=== PATIENT | male | born 1955 | race Caucasian/White ===

== ENCOUNTER → 2017-03-21 14:49 | Outpatient (CLI) | payer OTHER, SELFPAY ==
--- NOTE | 2017-03-21 15:00 | XR_ITS ---
XR FACIAL BONES MIN 3V CLINICAL INDICATION: ITS.REASON: FACIAL PAIN ORDERING PHYSICIAN: Sahara Mendenhall PATIENT AGE: 61 years COMPARISON: None FINDINGS: No bony anomalies apparent. No sinus air-fluid level or significant mucosal thickening. No lytic or blastic change. The patient is edentulous aside from an impacted molar on the right in the mandibular region IMPRESSION: Negative facial bones/sinuses
== END ==
PROVIDERS: PCP Family Medicine; Visit Provider Nurse Practitioner Family
DX: R51 Headache (principal)
CPT/HCPCS: 70150

== ENCOUNTER → 2017-07-15 07:17 | Outpatient (CLI) | payer OTHER, SELFPAY ==
[2017-07-15 08:11] LABS: Alanine Aminotransferase 39 U/L (12-78); Albumin Level 3.9 gm/dL (3.4-5.0); Albumin/Globulin Ratio 1.3 (1.1-1.8); Alkaline Phosphatase 72 U/L (46-116); Anion Gap 14.3 mEq/L (5-15); Aspartate Amino Transferase 28 U/L (15-37); Bilirubin,Total 0.7 mg/dL (0.2-1.0); Blood Urea Nitrogen 11 mg/dL (7-18); Calcium 8.7 mg/dL (8.5-10.1); Carbon Dioxide 26 mmol/L (21.0-32.0); Chloride 106 mmol/L (98-107); Chol/HDL Ratio 2.4 (1-3.5); Cholesterol 90 mg/dL (140-200); Creatinine,Serum 0.72 mg/dL (0.70-1.30); Estimated Glomerular Filt Rate 110 ml/min (>60); GFR (African American) 133 ML/MIN (>60); Globulin 3.1 gm/dl (1.3-3.2); Glucose 118 mg/dL (74-106); HDL Cholesterol 37 mg/dL (27-67); LDL Cholesterol 37 mg/dL (0-130); Potassium 4.3 mmoL/L (3.5-5.1); Sodium 142 mmol/L (136-145); Triglycerides 79 mg/dL (30-200); VLDL Cholesterol 16 mg/dL (0-40)
== END ==
PROVIDERS: PCP Family Medicine; Visit Provider Physician Assistant
DX: I25.10 Atherosclerotic heart disease of native coronary artery without angina pectoris (principal); E78.5 Hyperlipidemia, unspecified
CPT/HCPCS: 36415; 80053; 80061

== ENCOUNTER → 2017-12-26 13:41 | Outpatient (CLI) | payer OTHER, SELFPAY ==
--- NOTE | 2017-12-26 13:43 | XR_ITS ---
XR foot wt bearing RT 3V HISTORY: Follow-up fracture ITS.REASON: fracture follow-up ORDERING PHYSICIAN: Thais Kelly DPM PATIENT AGE: 62 years COMPARISON: 11/28/2017. FINDINGS: Nondisplaced transverse fracture once again noted at the base of the fifth metatarsal. Fracture line is still visible slightly more apparent which may be due to hypervascularity from early healing. Otherwise negative IMPRESSION: Nondisplaced fracture base of fifth metatarsal
--- NOTE | 2017-12-26 13:43 | XR_ITS ---
XR ankle wt bearing RT min 3V HISTORY: Pain, follow-up injury ITS.REASON: fracture/dislocation follow-up ORDERING PHYSICIAN: Thais Kelly DPM PATIENT AGE: 62 years Comparison: 11/28/2017 FINDINGS: Old avulsion fractures of the medial and lateral malleolus once again noted. There is decrease in soft tissue swelling at the lateral malleolus region. Nondisplaced fracture at base of the fifth metatarsal once again noted. IMPRESSION: Interval decrease in soft tissue swelling at the lateral malleolus region. Nondisplaced fracture base of fifth metatarsal
== END ==
PROVIDERS: PCP Family Medicine; Visit Provider Podiatrist
DX: S92.354A Nondisplaced fracture of fifth metatarsal bone, right foot, initial encounter for closed fracture (principal); S93.491A Sprain of other ligament of right ankle, initial encounter; S82.891A Other fracture of right lower leg, initial encounter for closed fracture; T14.8XXA Other injury of unspecified body region, initial encounter; M25.571 Pain in right ankle and joints of right foot; E66.3 Overweight
CPT/HCPCS: 73610; 73630

== ENCOUNTER → 2018-01-22 15:57 | Outpatient (CLI) | payer OTHER, SELFPAY ==
--- NOTE | 2018-01-22 15:58 | XR_ITS ---
XR foot wt bearing RT 3V HISTORY: ITS.REASON: fracture follow up ORDERING PHYSICIAN: Thais Kelly DPM PATIENT AGE: 62 years COMPARISON: 12/26/2017 FINDINGS: Healing fracture noted at the base of the fifth metatarsal overall not significant changed. Fracture is nondisplaced. No other significant anomalies evident. Fracture line is still visible and not significant change. IMPRESSION: No change nondisplaced fracture base of fifth metatarsal
== END ==
PROVIDERS: PCP Family Medicine; Visit Provider Podiatrist
DX: S92.354A Nondisplaced fracture of fifth metatarsal bone, right foot, initial encounter for closed fracture (principal); S93.491A Sprain of other ligament of right ankle, initial encounter; M79.671 Pain in right foot; T14.8XXA Other injury of unspecified body region, initial encounter
CPT/HCPCS: 73630

== ENCOUNTER → 2018-02-13 12:21 | Outpatient (CLI) | payer OTHER, SELFPAY ==
[2018-02-13 19:08] LABS: Alanine Aminotransferase 33 U/L (12-78); Albumin Level 3.6 gm/dL (3.4-5.0); Albumin/Globulin Ratio 0.9 (1.1-1.8); Alkaline Phosphatase 63 U/L (46-116); Anion Gap 16.5 mEq/L (5-15); Aspartate Amino Transferase 18 U/L (15-37); Bilirubin,Total 0.7 mg/dL (0.2-1.0); Blood Urea Nitrogen 10 mg/dL (7-18); Calcium 9.3 mg/dL (8.5-10.1); Carbon Dioxide 25 mmol/L (21.0-32.0); Chloride 100 mmol/L (98-107); Chol/HDL Ratio 2.2 (1-3.5); Cholesterol 98 mg/dL (140-200); Creatinine,Serum 0.79 mg/dL (0.70-1.30); Estimated Glomerular Filt Rate 99 ml/min (>60); GFR (African American) 120 ML/MIN (>60); Globulin 4.1 gm/dl (1.3-3.2); Glucose 68 mg/dL (74-106); HDL Cholesterol 45 mg/dL (27-67); LDL Cholesterol 34 mg/dL (0-130); Potassium 3.5 mmoL/L (3.5-5.1); Sodium 138 mmol/L (136-145); Thyroid Stimulating Hormone 0.89 uIU/ml (0.358-3.740); Total Protein,Serum 7.7 gm/dL (6.4-8.2); Triglycerides 93 mg/dL (30-200); VLDL Cholesterol 19 mg/dL (0-40)
== END ==
PROVIDERS: Visit Provider Physician Assistant
DX: Z00.00 Encounter for general adult medical examination without abnormal findings (principal); I25.10 Atherosclerotic heart disease of native coronary artery without angina pectoris; E78.5 Hyperlipidemia, unspecified
CPT/HCPCS: 36415; 80053; 80061; 84443

== ENCOUNTER → 2018-02-16 08:11 | Outpatient (CLI) | payer OTHER, SELFPAY ==
--- NOTE | 2018-02-16 08:13 | XR_ITS ---
XR foot wt bearing RT 3V HISTORY: Follow-up fracture, pain, ITS.REASON: fracture follow up ORDERING PHYSICIAN: Thais Kelly DPM PATIENT AGE: 62 years COMPARISON: D5 18 FINDINGS: FINDINGS: Healing fracture noted at the base of the fifth metatarsal overall not significant changed. Fracture is nondisplaced. No other significant anomalies evident. Fracture line is still visible somewhat less apparent. Hallux valgus with mild osteoarthritis of the first MTP joint noted IMPRESSION: Healing fracture base of fifth metatarsal
== END ==
PROVIDERS: PCP Family Medicine; Visit Provider Podiatrist
DX: T14.8XXA Other injury of unspecified body region, initial encounter (principal); S92.309A Fracture of unspecified metatarsal bone(s), unspecified foot, initial encounter for closed fracture
CPT/HCPCS: 73630

== ENCOUNTER → 2018-03-07 15:45 | Outpatient (CLI) | payer OTHER, SELFPAY ==
--- NOTE | 2018-03-07 15:57 | XR_ITS ---
XR foot wt bearing RT 3V HISTORY: Follow-up fracture ITS.REASON: Fracture follow-up ORDERING PHYSICIAN: Thais Kelly DPM PATIENT AGE: 62 years COMPARISON: 02/16/2018 FINDINGS: Healing fracture once again noted to base of the fifth metatarsal. Fracture line is barely visible. Hypertrophic changes are present at the distal aspect of the first metatarsal. Disuse osteopenia noted in the mid foot. IMPRESSION: Healing fifth metatarsal fracture
== END ==
PROVIDERS: PCP Family Medicine; Visit Provider Podiatrist
DX: S92.354A Nondisplaced fracture of fifth metatarsal bone, right foot, initial encounter for closed fracture (principal)
CPT/HCPCS: 73630

== ENCOUNTER 2018-03-08 17:30 | Outpatient (RCR) | payer OTHER, SELFPAY ==
--- NOTE | 2018-01-30 13:39 | HMH.PTOPEV ---
PT Outpatient Evaluation Rehab PT Outpatient Evaluation Start: 01/30/18 13:27 Freq: Status: Active Protocol: Document 01/30/18 13:27 TRACIE (Rec: 01/30/18 13:39 TRACIE [id number]) Electronically Signed By Suman Solorzano, PT 01/30/18 13:27 Outpatient Therapy Subjective History Subjective History Patient is a 62 year old male presenting to outpatient PT with reports of R foot/ankle pain S/P R 5th metatarsal fracture after a fall at home. Pt reports that he was sitting on his couch where his leg fell asleep. He went to stand and then fell. Initial injury occurred 11/28/17. Pt has been NWB in CAM walker for approx 2 months. Ordered by MD to progress WBAT upon starting PT per pt report. Pt reports hx of heart disease. Chief Complaint Pain Stiff Swelling Symptom Type Sharp Symptoms Relieved By Rest/Positioning Ice OTC Meds Prescription Meds Symptoms Aggravated By Standing Physical Activity Walking Prior Functional Limitations None Current Functional Limitations Housework Dressing Standing Squatting Recreation Activity Walking Stairs Balance Bending/Stooping Symptom Description Constant but Variable Level of pain today (0-10) 1 Pain scale - at its best (0-10) 0 Pain scale - at its worst (0-10) 5 Ankle/Foot Eval Gait Observation General Gait Pattern Observation Antalgic Gait Decrease Weight Bear (R) Assistive Device Ambulation Assistive Device Rolling Walker Palpation Tenderness right Ankle/Foot Palpation Findings Tenderness Ankle/Foot Palpation Overall Comment base of 5th MT, achilles, deltoid ligaments Deltoid ligament TTP positive ROM Ankle/Foot Dorsiflexion w/Knee Extended -18 Active Range Motion (degrees) Ankle/Foot Dorsiflexion w/Knee Extended -8 Passive Range (degrees) Ankle/Foot Plantar Flexion Active Range 40
--- NOTE | 2018-03-06 12:08 | HMH.RHREAS ---
Rehab Reassessment Rehab OP Re-assessment Start: 03/06/18 11:45 Freq: Status: Active Protocol: Document 03/06/18 11:46 TRACIE (Rec: 03/06/18 12:08 TRACIE [id number]) Electronically Signed By Suman Solorzano, PT 03/06/18 11:46 Rehab Re-assessment Subjective Subjective Pt reports 90% improvement. I'd be fine if I didn't have all the pain in my heel. My motion, strength and swelling are much better. Objective Objective Notes AROM R: DF 10 ;PF WNL; INV WNL ; EV 10 MMT: DF WNL ; PF WNL ; INV 4 +/5 ; EV 4+/5 TTP: R calcaneal tubercle Pain: 4/10 at worst Neuro: WNL Special test: + for Mortons Neuroma Assessment Progress Assessment Progressing as Expected Assessment Notes Pt continues to progress well with Rx. Motion and strength continue improve. Development of severe heel pain after a fall though a deck board has slowed progression. Pt began to have pain between 2nd and 3rd metatarsal heads approx 1 week ago that has begun to improve. Special tests positive for mortons neuroma. Pt continues to require CAM walker and crutch for ambulation secondary to heel pain. Persistent functional limitations with all standing/ ambulatory activities. Patient goals met STG's Goals Not Met LTG's Revised Goals NA Plan Plan Continue with POC Frequency of Therapy 2x/week Duration of therapy 4 weeks. Time and Billing Re-Eval Time 15 Re-Eval Billing Units 1 PHYSICIAN CERTIFICATION: I certify the specified therapy services for Ammon Collier are required, authorized, and reviewed every 30 days.
== END 2018-03-08 17:35 | disposition home or self-care (01) ==
LOC: PT 17:30
PROVIDERS: Visit Provider Podiatrist
DX: S92.354A Nondisplaced fracture of fifth metatarsal bone, right foot, initial encounter for closed fracture (principal); S93.401A Sprain of unspecified ligament of right ankle, initial encounter; M62.58 Muscle wasting and atrophy, not elsewhere classified, other site
CPT/HCPCS: 97010; 97014; 97035; 97110; 97112; 97116; 97140; 97163; 97164; G0283

== ENCOUNTER 2018-04-26 17:30 | Outpatient (RCR) | payer OTHER, SELFPAY ==
--- NOTE | 2018-03-28 17:25 | HMH.PTOPEV ---
PT Outpatient Evaluation Rehab PT Outpatient Evaluation Start: 03/28/18 17:13 Freq: Status: Active Protocol: Document 03/28/18 17:13 TRACIE (Rec: 03/28/18 17:25 TRACIE [id number]) Electronically Signed By Suman Solorzano, PT 03/28/18 17:13 Outpatient Therapy Subjective History Subjective History Pt is a 62 year old male presenting to outpatient PT with reports R knee pain starting 12/2017. He initially had an injury to the right foot requiring prolonged NWB in a CAM walker. Pt reports R knee pain began approx 3 weeks after initial to right foot. No recent diagnostics for the R knee to report. Majority of pain focused to medial compartment. No other comorbidites to report. Chief Complaint Pain Stiff Swelling Symptom Type Sharp Symptoms Relieved By Rest/Positioning Ice OTC Meds Symptoms Aggravated By Standing Physical Activity Walking Prior Functional Limitations None Current Functional Limitations Lifting Housework Driving Standing Squatting Recreation Activity Walking Stairs Balance Symptom Description Intermittent Level of pain today (0-10) 6 Pain scale - at its best (0-10) 9 Pain scale - at its worst (0-10) 0 Hip/Knee Eval Gait Observation General Gait Pattern Observation Antalgic Gait Decrease Weight Bear (R) Assistive Device Assistive Devices Straight Cane Palpation Tenderness right Knee Palpation Finding Tenderness Knee Palpation Overall Comment medial joint line, pes anserene MMT Hip Flexion Strength Grade 5 Normal Hip Abduction Strength Grade 5 Normal Hip Adduction Strength Grade 4 Good Hip Extension Strength Grade 4- Good- Hip External Rotation Strength Grade 4- Good- Hip Internal Rotation Strength Grade 4- Good- Knee Extension Strength Grade 4 Good Knee Flexion Strength Grade
== END 2018-04-26 17:35 | disposition home or self-care (01) ==
LOC: PT 17:30
PROVIDERS: Visit Provider Nurse Practitioner
DX: M25.561 Pain in right knee (principal)
CPT/HCPCS: 97010; 97014; 97110; 97163; G0283

== ENCOUNTER → 2018-12-25 15:49 | Outpatient (POV) | payer OTHER, SELFPAY | PROVIDERS: Visit Provider Dermatology | DX: Z00.00 Encounter for general adult medical examination without abnormal findings (principal) ==

== ENCOUNTER → 2019-02-25 09:10 | Outpatient (CLI) | payer OTHER, SELFPAY ==
--- NOTE | 2019-02-25 09:10 | CA_ITS ---
APPROVED REPORT EXAM: Comprehensive 2D, Doppler, and color-flow Echocardiogram Rubber Off: Dina Vazquez RVT Ht: 5 ft 10 in Wt: 196lbs BSA: 2.07 BP: 135/78 mmHg Indications: Systolic heart failure,CVA/TIA, CAD, Stents, Hx IA CVA/TIA, Diabetes, CAD, Hyperlipidemia,Ex Smoker,EF of 40% on last echo 2D Dimensions LVOT 2.20 cm (M/F) 1.5-2.5 M-Mode Dimensions RVDd 2.60 cm (0.9-2.6) LA Diam 3.70 cm (1.9-4.0) LVDd 5.36 cm (3.5-5.7) Ao Diam 2.50 cm (2.0-3.7) LVDs 4.00 cm (3.5-5.7) AV Cusp 2.00 cm (1.5-2.6) IVSd 1.20 cm (0.6-1.1) PWd 0.80 cm (0.6-1.1) EF (Teich) 49.60% FS 25.40% EDV (Teich) 138.90 mL ESV (Teich) 70.00 mL LV Diastology E/A Ratio 0.67 Mitral Valve MV A Velocity 65.00 (40-130 cm/s) Left Ventricle Left atrium is mildly enlarged, left ventricle is normal size, there is mild concentric left ventricular hypertrophy, visually estimated ejection fraction 40 to 45%, there is moderate hypokinesis involving the inferior basal, inferolateral and posterolateral wall. Grade 1 diastolic dysfunction seen without tissue Doppler evidence of raise left atrial pressure. Right Ventricle Right atrium and right ventricle mildly enlarged with normal contractility. Aortic Valve Aortic valve is thickened and calcified leaflet continue to display good mobility, there is no aortic stenosis, there is mild aortic insufficiency. Mitral Valve Mitral valve is grossly normal, there is mild mitral regurgitation. Tricuspid Valve Tricuspid valve is grossly normal, there is mild tricuspid regurgitation. Pulmonic Valve Pulmonic valve is poorly visualized. Great Vessels Aortic root is normal size. Pericardium No significant pericardial effusion noted. Conclusion 1. Mildly in the left atrium, normal left ventricular size, mild concentric left ventricular hypertrophy, visually estimated ejection fraction 40 to 45% with multiple segmental wall motion abnormality described above, grade 1 diastolic dysfunction seen without tissue Doppler evidence of raise left atrial pressure. 2. Mild mitral and tricuspid regurgitation. 3. Thickened and calcified aortic valve without aortic stenosis, there is mild aortic insufficiency. 4. No significant pericardial effusion noted. Electronically signed by : Jose Martin Parekh, 02/25/2019 20:21:30
== END ==
PROVIDERS: PCP Family Medicine; Visit Provider Internal Medicine
DX: I50.20 Unspecified systolic (congestive) heart failure (principal); I25.10 Atherosclerotic heart disease of native coronary artery without angina pectoris
CPT/HCPCS: 93306

== ENCOUNTER → 2019-07-24 10:28 | Outpatient (CLI) | payer OTHER, SELFPAY ==
--- NOTE | 2019-07-24 10:37 | XR_ITS ---
PROCEDURE: XR ANKLE LT MIN 3V CLINICAL INDICATION: LT ANKLE PAIN Posttraumatic pain and swelling COMPARISON: [id number] XR ankle RT 2V from 11/28/2017 FINDINGS: Nondisplaced oblique fracture involves the distal aspect the fibula with the fracture exiting medially at the level of the ankle joint. Ankle mortise does not appear widened. The talar dome has an unremarkable appearance. There is some overlying soft tissue swelling laterally IMPRESSION: Nondisplaced distal fibular fracture with overlying soft tissue swelling Dictated by: Orion Mary MD 07/24/2019 13:58 Electronically signed by Orion Mary MD in [place] 07/24/2019 13:58
--- NOTE | 2019-07-24 10:37 | XR_ITS ---
PROCEDURE: XR RIBS LT MIN 3V W CXR1V CLINICAL INDICATION: FALL Posttraumatic pain, fall with injury and pain COMPARISON: CXR CHEST(2 VIEWS-NOT PORTABLE) from 02/03/2013 FINDINGS: Frontal view of the chest shows unremarkable cardiovascular structures. There is some minimal atelectatic change in the right midlung. There is faint increased density in the left midlung. There is a faint lucency overlying the lateral aspect of the left 6th rib. This may be due to a Mach line from the 5th rib end. There is a longitudinal linear density along the left lateral hemithorax and could be due to an area of scarring. IMPRESSION: There is questionable nondisplaced left 6th rib fracture versus overlying artifact. Longitudinal density along left hemithorax which may be due to some scarring or atelectatic change. CT may confirm if clinically warranted. Dictated by: Orion Mary MD 07/24/2019 14:02 Electronically signed by Orion Mary MD in [place] 07/24/2019 14:02
== END ==
PROVIDERS: PCP Family Medicine; Visit Provider Family Medicine
DX: M25.572 Pain in left ankle and joints of left foot (principal)
CPT/HCPCS: 71101; 73610

== ENCOUNTER 2019-11-29 09:01 | Day surgery (SDC) | payer OTHER, SELFPAY ==
[2019-11-29] VITALS (11 sets, daily range): BP systolic 94–120; BP diastolic 57–78; PULSE 68–83; RESP 16–18; TEMP 36.6; O2SAT 94–97; BMI 28.8
--- NOTE | 2019-11-29 | IR_ITS ---
APPROVED REPORT Patient Location: Outpatient PROCEDURES Left heart catheterization Left ventriculogram Selective coronary angiogram Drug-eluting stent deployment to the proximal circumflex artery INDICATION Coronary disease, Accelerated angina pectoris class III-IV Informed consent was obtained prior to the procedure. COMPLICATIONS NONE Estimated Blood Loss: LESS THAN 10 ML TECHNIQUE One percent lidocaine used to anesthetize the right anterior aspect of the wrist. The right radial artery was accessed via the Seldinger technique. A 6 Belarusian sheath was placed in the right radial artery. 2.5 mg of verapamil, 800 mcg of nitroglycerin, 1mg Lidocaine and 5000 U Heparin were given through the arterial sheath. A 6 Belarusian JL 3 guide catheter was used to perform left heart catheterization left ventriculogram and selective coronary angiogram. At the end of the procedure therapeutic heparin was given giving a therapeutic ACT. The JL 3 guide catheter was placed in the left main artery and a Choice PT extra-support wire was placed on the circumflex artery. A 3.5 x 12 mm resolute bhanu stent was deployed at 20 sofie reducing the stenosis to 0%. MAYRA-3 flow was present before and after the procedure. At the end the procedure the apparatus was removed the sheath was removed good hemostasis was achieved using TR banding patient was transferred to the postop holding in stable condition ANGIOGRAPHIC RESULTS The left main artery Normal The left anterior descending artery Is proximally calcified with 20 to 30% stenoses. The proximal to mid LAD has a stent which is widely patent with minimal in-stent restenosis and excellent proximal distal transitioning. The LAD is a small vessel and does not supply the apex The circumflex artery Is a dominant vessel and has a proximal 70% concentric stenosis. A large first obtuse marginal artery has a mid vessel 30% stenosis. This obtuse marginal artery actually supplies the apex The right coronary artery Is a nondominant vessel and has and has proximal and mid vessel calcifications which has stents within the calcified area. The stents appear to be widely patent with minimal in-stent restenosis nothing greater than 30% The FAIR ventriculogram reveals Ejection fraction of 50% with apical hypokinesis The left ventricular end-diastolic pressure 15 mmHg IMPRESSION Coronary disease as described above Successful stenting of a large proximal dominant circumflex artery reducing severe stenosis to 0% Ejection fraction 50% with regional wall motion abnormality Mildly elevated LVEDP PLAN 1. Dual antiplatelet therapy 2. LDL less than 55 3. Standard therapy for ischemic heart disease including LOIS inhibitor beta-anita 4. Aggressive risk factor modification 5. Avoidance of all tobacco products 6. Cardiac rehabilitation Electronically signed by : Riki Stephens, 11/29/2019 12:35:24
[2019-11-29 09:43] LABS: Basophils # 0.1 K/mm3 (0-0.2); Basophils % 0.9 % (0.1-2.0); Eosinophils # 0.2 K/mm3 (0.0-0.4); Eosinophils % 2.9 % (0.1-12.0); Hematocrit 39.6 % (42.0-52.0); Hemoglobin 13.9 g/dL (14.1-18.0); Lymphocytes # 1.4 K/mm3 (0.7-4.5); Lymphocytes % 26.8 % (10-50); Mean Corpuscular HGB Conc 35.2 g/dL (31.8-35.4); Mean Corpuscular Hemoglobin 31.7 pg (27.0-31.2); Mean Corpuscular Volume 90.2 fl (80-94); Mean Platelet Volume 7.7 fl (7.4-10.4); Monocytes # 0.7 K/mm3 (0.1-1.0); Monocytes % 12.5 % (1.7-9.3); Neutrophils % 56.8 % (37.0-80.0); Platelet Count 238 K/mm3 (142-424); Red Blood Count 4.39 M/mm3 (4.60-6.20); Red Cell Distribution Width 14.1 % (11.5-17.5); White Blood Count 5.3 K/mm3 (4.8-10.8)
[2019-11-29 09:51] LABS: Chloride 105 mmol/L (98-107); Potassium 4.4 mmoL/L (3.5-5.1); Sodium 140 mmol/L (136-145)
[2019-11-29 09:54] LABS: Anion Gap 15.4 mEq/L (5-15); Blood Urea Nitrogen 13 mg/dl (9-20); Calcium 9.5 mg/dl (8.4-10.2); Carbon Dioxide 24 mmol/L (22.0-30.0); Creatinine Clearance Estimated 95 mL/min (50-200); Estimated Glomerular Filt Rate 135 ml/min (>60); GFR (African American) 164 ML/MIN (>60); Glucose 125 mg/dl (74-100)
[2019-11-29 10:13] LABS: Coronavirus 19 IgM Antibody Negative (Negative)
[2019-11-29 10:14] LABS: Coronavirus 19 IgG Antibody Positive (Negative)
[2019-11-29 14:00] LABS: CATHL Activated Clotting Time 382 SEC (74-125)
--- NOTE | 2019-11-29 15:25 | HMH.PHACLD ---
Ammon Collier has received discharge medication counseling on the following medications: CONTINUE MEDICATIONS: BRILINTA, ASPIRIN, LISINOPRIL, CARVEDILOL, CRESTOR
== END 2019-11-29 15:30 | disposition home or self-care (01) ==
LOC: CATHLAB 09:06
PROVIDERS: PCP Family Medicine; Visit Provider Internal Medicine
DX: I25.110 Atherosclerotic heart disease of native coronary artery with unstable angina pectoris (principal); I11.9 Hypertensive heart disease without heart failure; T82.855A Stenosis of coronary artery stent, initial encounter; E78.2 Mixed hyperlipidemia; I42.9 Cardiomyopathy, unspecified; I25.2 Old myocardial infarction; Z95.5 Presence of coronary angioplasty implant and graft; Z88.8 Allergy status to other drugs, medicaments and biological substances; Z79.899 Other long term (current) drug therapy
CPT/HCPCS: 80048; 85025; 85347; 86328; 92928; 93458; 99152; 99153; C1725; C1769; C1876; C9600; J1644; Q9967

== ENCOUNTER → 2019-12-05 16:48 | Outpatient (CLI) | payer OTHER, SELFPAY ==
[2019-12-05 17:13] LABS: Basophils # 0.1 K/mm3 (0-0.2); Basophils % 0.9 % (0.1-2.0); Eosinophils # 0.2 K/mm3 (0.0-0.4); Eosinophils % 3.3 % (0.1-12.0); Hematocrit 38.2 % (42.0-52.0); Hemoglobin 13.4 g/dL (14.1-18.0); Lymphocytes # 2.3 K/mm3 (0.7-4.5); Mean Corpuscular Hemoglobin 32.1 pg (27.0-31.2); Mean Corpuscular Volume 91.6 fl (80-94); Mean Platelet Volume 7.7 fl (7.4-10.4); Monocytes # 0.7 K/mm3 (0.1-1.0); Monocytes % 11.8 % (1.7-9.3); Platelet Count 239 K/mm3 (142-424); Red Blood Count 4.17 M/mm3 (4.60-6.20); Red Cell Distribution Width 13.8 % (11.5-17.5); White Blood Count 6.3 K/mm3 (4.8-10.8)
[2019-12-05 18:08] LABS: Alanine Aminotransferase 35 U/L (12-78); Albumin Level 4.6 g/dl (3.5-5.0); Albumin/Globulin Ratio 1.8 (1.1-1.8); Alkaline Phosphatase 129 U/L (38-126); Aspartate Amino Transferase 40 U/L (17-59); Bilirubin,Total 0.7 mg/dl (0.2-1.3); Blood Urea Nitrogen 17 mg/dl (9-20); Calcium 9.5 mg/dl (8.4-10.2); Carbon Dioxide 23 mmol/L (22.0-30.0); Chloride 106 mmol/L (98-107); Estimated Glomerular Filt Rate 113 ml/min (>60); GFR (African American) 137 ML/MIN (>60); Globulin 2.6 g/dL (1.3-3.2); Glucose 115 mg/dl (74-100); Sodium 138 mmol/L (136-145); Total Protein,Serum 7.2 g/dl (6.3-8.2)
== END ==
PROVIDERS: Visit Provider Internal Medicine
DX: I25.118 Atherosclerotic heart disease of native coronary artery with other forms of angina pectoris (principal); I11.9 Hypertensive heart disease without heart failure; E78.2 Mixed hyperlipidemia; I42.9 Cardiomyopathy, unspecified
CPT/HCPCS: 36415; 80053; 85025

== ENCOUNTER 2019-12-20 08:08 | Outpatient (RCR) | payer OTHER, SELFPAY | END 2020-03-10 14:40 | disposition home or self-care (01) | LOC: PT 08:08 | PROVIDERS: Visit Provider Internal Medicine | DX: Z95.5 Presence of coronary angioplasty implant and graft (principal) | CPT/HCPCS: 93798 ==

== ENCOUNTER → 2019-12-20 08:48 | Outpatient (CLI) | payer OTHER, SELFPAY ==
--- NOTE | 2019-12-24 09:10 | PC.NURSE ---
PATIENT TOOK HOME HOME SLEEP DEVICE - RETURNED AND NOT ENOUGH SLEEP DATA ON DEVICE - THEREFORE NO CHARGE..
== END ==
PROVIDERS: PCP Family Medicine; Visit Provider Internal Medicine Cardiovascular Disease
DX: R06.83 Snoring (principal); R40.0 Somnolence

== ENCOUNTER → 2020-04-04 12:54 | Outpatient (CLI) | payer OTHER, SELFPAY | PROVIDERS: PCP Family Medicine; Visit Provider Specialist | DX: G47.33 Obstructive sleep apnea (adult) (pediatric) (principal); I25.118 Atherosclerotic heart disease of native coronary artery with other forms of angina pectoris; I10 Essential (primary) hypertension | CPT/HCPCS: 95806 ==

== ENCOUNTER → 2020-06-09 09:38 | Outpatient (CLI) | payer OTHER, SELFPAY ==
--- NOTE | 2020-06-09 09:38 | US_ITS ---
PROCEDURE: US FNA OTHER CLINICAL INDICATION: Left submandibular nodule COMPARISON: CT CTA Neck from 05/01/2020 FINDINGS: Following obtaining informed consent and time-out procedure under aseptic conditions and local anesthesia with 1 percent buffered lidocaine 21 gauge needle was inserted into the left neck nodule and 3 passes made.. The patient tolerated the procedure well without evidence of immediate complication. Cytology: Negative for malignancy. Please see cytology report IMPRESSION: Uneventful ultrasound-guided FNA of the left neck nodule which was negative for malignancy. Dictated by: Orion Mary MD 06/12/2020 09:00 Orion Mary MD in [place] 06/12/2020 09:00
== END ==
PROVIDERS: PCP Family Medicine; Visit Provider Otolaryngology
DX: K11.8 Other diseases of salivary glands (principal)
CPT/HCPCS: 10005

== ENCOUNTER → 2020-09-09 15:08 | Outpatient (CLI) | payer OTHER, SELFPAY ==
--- NOTE | 2020-09-09 15:09 | CA_ITS ---
APPROVED REPORT EXAM: Comprehensive 2D, Doppler, and color-flow Echocardiogram Postulant: Cindy Peralta RT(R) Ht: 5 ft 10 in Wt: 196lbs BSA: 2.07 BP: 110/67 mmHg Indications: ex smoker, SOB, HTN, hyperlipidemia, CHF, CAD, stents, old [place], EF 40-45% echo 02/25/19 2D Dimensions LVOT 2.05 cm (M/F) 1.5-2.5 LVEF (Rudd's) 36.70 % M: 52 - 72 LV Volume 124.20 mL M: 62 - 150 LV Volume Index 60.00 mL/m2 M: 34 - 74 LA Volume 41.60 mL LA Volume Index 20.09 mL/m2 (M/F) 16-34 M-Mode Dimensions RVDd 3.02 cm (0.9-2.6) LVDd 4.87 cm (3.5-5.7) LVDs 3.70 cm (3.5-5.7) IVSd 0.89 cm (0.6-1.1) PWd 0.89 cm (0.6-1.1) EF (Teich) 47.80% FS 24.00% EDV (Teich) 111.20 mL ESV (Teich) 58.10 mL LV Diastology E Decel Time 190.00 (160-240 msec) E/A Ratio 1.1 MED E' 7.20 (< 7 cm/sec) E'/MED E' Ratio 10.85 (>14) LAT E' 11.80 (<10 cm/sec) E/LAT E' Ratio 6.62 (>14) Aortic Valve AI PHT 641.00 ms Mitral Valve MV E Max Blair. 78.00 (40-130 cm/s) MV A Velocity 71.00 (40-130 cm/s) E/A Ratio 1.10 MV Decel. Time 190.00 (160-240 ms) MV PHT 56.00 ms Left Ventricle Technically difficult study because of the patient fact in poor acoustic windows. Endocardial surfaces are poorly visualized. Left atrium is mildly enlarged, left ventricle is normal size, mild concentric left ventricular hypertrophy, visually estimated ejection fraction 50% with no obvious regional wall motion abnormality, endocardial surfaces are poorly visualized. Diastolic parameters are inconclusive. Right Ventricle Right atrium and right ventricle are normal size and contractility. Aortic Valve Aortic valve is minimally thickened and fibrosed, there is no aortic stenosis or aortic insufficiency. Mitral Valve Mitral valve grossly normal, there is trace mitral regurgitation. Tricuspid Valve Tricuspid grossly normal, there is trace tricuspid regurgitation, tricuspid regurgitation jet velocity is inadequate for calculation of the right ventricular systolic pressure. Pulmonic Valve Pulmonic valve is poorly visualized. Great Vessels Aortic root is normal size. Pericardium No significant pericardial effusion noted. Conclusion 1. Technically difficult study because of the patient fact in poor acoustic windows. Mildly enlarged left atrium, normal left ventricular size, mild concentric left ventricular hypertrophy, visually estimated ejection fraction 50% with no regional wall motion abnormality, endocardial cells are poorly visualized, diastolic parameters are inconclusive. 2. Trace mitral and tricuspid regurgitation. 3. No significant pericardial effusion noted. Electronically signed by : Jose Martin Parekh, 09/10/2020 15:58:23
== END ==
PROVIDERS: PCP Family Medicine; Visit Provider Internal Medicine Cardiovascular Disease
DX: I42.9 Cardiomyopathy, unspecified (principal); I25.10 Atherosclerotic heart disease of native coronary artery without angina pectoris; I10 Essential (primary) hypertension; E78.5 Hyperlipidemia, unspecified
CPT/HCPCS: 93306

== ENCOUNTER → 2021-06-24 09:48 | Outpatient (CLI) | payer MEDICARE, SELFPAY ==
[2021-06-24 12:49] LABS: Bilirubin,Unconjugated 0.6 mg/dL (0.0-1.1)
[2021-06-24 12:50] LABS: Alanine Aminotransferase 36 U/L (12-78); Albumin Level 4.5 g/dl (3.5-5.0); Alkaline Phosphatase 78 U/L (38-126); Aspartate Amino Transferase 39 U/L (17-59); Bilirubin,Direct 0.3 mg/dl (0.0-0.4); Bilirubin,Indirect 0.6 mg/dL (0.0-0.9); Bilirubin,Total 0.9 mg/dl (0.2-1.3); Chol/HDL Ratio 2.9 (1-3.5); Cholesterol 109 mg/dl (140-200); HDL Cholesterol 38 mg/dl (40-60); Total Protein,Serum 6.9 g/dl (6.3-8.2); Triglycerides 133 mg/dl (30-150); VLDL Cholesterol 27 mg/dL (0-40)
[2021-06-24 13:01] LABS: Direct LDL Cholesterol 52.21 mg/dL (100-129)
== END ==
PROVIDERS: Visit Provider Nurse Practitioner Family
DX: E78.5 Hyperlipidemia, unspecified (principal)
CPT/HCPCS: 36415; 80061; 80076

== ENCOUNTER → 2021-10-23 10:54 | Outpatient (CLI) | payer MEDICARE, SELFPAY | PROVIDERS: PCP Family Medicine; Visit Provider Surgery | DX: Z01.812 Encounter for preprocedural laboratory examination (principal); Z20.822 Contact with and (suspected) exposure to COVID-19; Z12.11 Encounter for screening for malignant neoplasm of colon | CPT/HCPCS: C9803; U0003; U0005 ==

== ENCOUNTER 2021-10-26 07:21 | Day surgery (SDC) | payer MEDICARE, SELFPAY ==
[2021-10-21 12:29] VITALS: BMI 28.4
[2021-10-26] VITALS (7 sets, daily range): BP systolic 88–138; BP diastolic 55–79; PULSE 60–77; RESP 15–20; TEMP 36.3–36.4; O2SAT 92–97
--- NOTE | 2021-10-26 07:46 | HMH.ANESCL ---
[facility] Anesthesia Checklist - Patient Identification Patient Identification: Arm Band - Structural Data Admitted From: Home Planned Operative Procedure/s: Colonoscopy Consent for Planned Operative Procedure(s) Verified: Yes - NPO Status Verified Time NPO: 00:00 - Airway Assessment C-Spine Mobility Assessed: Yes TMJ Mobility Assessed: Yes Dentition: Good Dentition - Neurological Assessment Level of Consciousness: Awake Hx Seizures: No Numbness or tingling in extremities: No - Anesthesia Plan Anesthesia Risk discussed: Yes Anesthesia Plan: Verified ASA Class: III Anesthesia Type: MAC [facility] History I have reviewed the patient's past medical history: Yes Medical History: Reports:: Atherosclerotic Heart Disease, Coronary Artery Disease, Cerebrovascular Accident, Hyperlipidemia, Myocardial Infarction Denies:: Cancer, Diabetes Mellitus Type 1, Diabetes Mellitus Type 2, Internal Pacemaker, MRSA, Seizures *Have you ever received a pneumonia vaccine?: Yes *Have you received a flu vaccine this season?: Yes Anesthesia experience/problems:: None Other Surgeries: Yes: Appendectomy, Cardiac Catheterization, Cardiac Surgery, Colonoscopy, Coronary Stent, Hernia Repair, Other. No: Pacemaker Amputation: No Fractures: Yes - *Social History Last grade of school completed: Some college Smoking Status: Former smoker Alcohol Intake: never Alcohol Intake Frequency:: other Substance Use Type: denies use *Occupational Status:: retired Housing: house Household Members: spouse *Travel in the last 8 weeks: None Family Hx:: Cancer
--- NOTE | 2021-10-26 08:03 | P.PN_ITS ---
[facility] Anesthesia Checklist - Patient Identification Patient Identification: Arm Band - Structural Data Admitted From: Home Planned Operative Procedure/s: Colonoscopy Consent for Planned Operative Procedure(s) Verified: Yes Verified Documents: Surgical Consent, History and Physical - NPO Status Verified Time NPO: 00:00 - Additional verifications Anesthesia Reactions: No - Airway Assessment C-Spine Mobility Assessed: Yes (mp2) TMJ Mobility Assessed: Yes Dentition: Dentures-good fit - Neurological Assessment Level of Consciousness: Awake, Alert - Anesthesia Plan Anesthesia Risk discussed: Yes Anesthesia Plan: Verified ASA Class: III Anesthesia Type: MAC [facility] History I have reviewed the patient's past medical history: Yes Medical History: Reports:: Atherosclerotic Heart Disease, Coronary Artery Disease, Cerebrovascular Accident, Hyperlipidemia, Myocardial Infarction Denies:: Cancer, Diabetes Mellitus Type 1, Diabetes Mellitus Type 2, Internal Pacemaker, MRSA, Seizures *Have you ever received a pneumonia vaccine?: Yes *Have you received a flu vaccine this season?: Yes Anesthesia experience/problems:: None Other Surgeries: Yes: Appendectomy, Cardiac Catheterization, Cardiac Surgery, Colonoscopy, Coronary Stent, Hernia Repair, Other. No: Pacemaker Amputation: No Fractures: Yes - *Social History Last grade of school completed: Some college Smoking Status: Former smoker Alcohol Intake: never Alcohol Intake Frequency:: other Substance Use Type: denies use *Occupational Status:: retired Housing: house Household Members: spouse *Travel in the last 8 weeks: None Family Hx:: Cancer
--- NOTE | 2021-10-26 09:07 | P.PCN_ITS ---
- Procedure: Date: 10/26/21 Patient Date of :: 1955 Procedure Performed:: Colonoscopy with polypectomy Indications:: Screening Performing Provider:: Silverio Tobar MD Referring Provider:: . Sedation:: Monitored anesthesia care Procedure:: After informed consent was obtained the patient was taken to the endoscopy suite. Sedation ensued after the patient was transferred to the left lateral decubitus position. Pulse, blood pressure, and oxygen saturation were monitored throughout the procedure. Digital rectal exam revealed no significant ab normality. The colonoscope was placed in position. The entire colon was evaluated. The colonoscope was carefully removed and the patient was transferred to recovery in stable condition. Please see findings and specimens below for detail. Findings:: Bowel preparation moderate Hemorrhoidal tags with dominant posterior tag Fairly severe sigmoid diverticulosis Severe tortuosity and spasticity (particularly within sigmoid region) Complex sessile polyp (see specimens) Specimens:: Lobulated sessile polyp at 75 cm (cold snare) Recommendations:: Timing of repeat colonoscopy is pending pathology but will likely be between 2-3 years with extended bowel preparation. Complications:: No immediate Estimated blood obtained (mL): 1
== END 2021-10-26 09:50 | disposition home or self-care (01) ==
LOC: OUTP 07:22
PROVIDERS: PCP Family Medicine; Visit Provider Surgery
PROC: 0DJD8ZZ Inspection of Lower Intestinal Tract, Via Natural or Artificial Opening Endoscopic (ICD-10-PCS; principal; 2021-10-26 08:30)
DX: Z12.11 Encounter for screening for malignant neoplasm of colon (principal); K63.5 Polyp of colon; I25.10 Atherosclerotic heart disease of native coronary artery without angina pectoris; E78.5 Hyperlipidemia, unspecified; I25.2 Old myocardial infarction; Z79.899 Other long term (current) drug therapy
CPT/HCPCS: 45385; 88305

== ENCOUNTER → 2022-04-19 07:56 | Outpatient (CLI) | payer MEDICARE, SELFPAY ==
--- NOTE | 2022-04-19 08:09 | US_ITS ---
FINAL REPORT CLINICAL HISTORY: LT LOWER QUAD ABDOMINAL MASS FINDINGS: US ABDOMINAL LIMITED Limited sonographic images were obtained of the left abdomen and inguinal region. The left inguinal region there are several masses measuring up to 5 cm that may represent adenopathy. There is a heterogeneous mass in the left lower quadrant measuring 8.7 x 7 cm. This appears mostly solid is most worrisome for neoplasm. IMPRESSION: Left lower quadrant mass with left inguinal adenopathy most worrisome for neoplasm. Recommend CT abdomen and pelvis with contrast. Reviewed, Interpreted and Dictated by Rush Brito III, MD Transcribed by Evangelista Stewart Authenticated and [facility]
== END ==
PROVIDERS: PCP Family Medicine; Visit Provider Nurse Practitioner Family
DX: R19.04 Left lower quadrant abdominal swelling, mass and lump (principal)
CPT/HCPCS: 76700

== ENCOUNTER → 2022-04-26 09:49 | Outpatient (CLI) | payer MEDICARE, SELFPAY ==
[2022-04-26 11:50] LABS: Chloride 106 mmol/L (98-107); Potassium 4.6 mmoL/L (3.5-5.1); Sodium 140 mmol/L (136-145)
[2022-04-26 11:52] LABS: Alanine Aminotransferase 41 U/L (12-78); Aspartate Amino Transferase 40 U/L (17-59); Blood Urea Nitrogen 12 mg/dl (9-20); Estimated Glomerular Filt Rate 112 ml/min (>60); GFR (African American) 136 ML/MIN (>60)
[2022-04-26 11:53] LABS: Albumin Level 4.6 g/dl (3.5-5.0); Albumin/Globulin Ratio 1.8 (1.1-1.8); Alkaline Phosphatase 59 U/L (38-126); Anion Gap 12.6 mEq/L (5-15); Carbon Dioxide 26 mmol/L (22.0-30.0); Globulin 2.5 g/dL (1.3-3.2); Glucose 111 mg/dl (74-100); Total Protein,Serum 7.1 g/dl (6.3-8.2)
== END ==
PROVIDERS: PCP Family Medicine; Visit Provider Family Medicine
DX: R19.04 Left lower quadrant abdominal swelling, mass and lump (principal)
CPT/HCPCS: 36415; 80053

== ENCOUNTER → 2022-04-29 08:57 | Outpatient (CLI) | payer MEDICARE, SELFPAY ==
--- NOTE | 2022-04-29 09:01 | CT_ITS ---
FINAL REPORT TECHNIQUE: Pre- and postcontrast images of the abdomen were performed by computed tomography. CLINICAL HISTORY: ABDOMINAL MASS,LT LOWER QUAD PAIN COMPARISON: 04/19/2022 ultrasound FINDINGS: Scarring is seen in the lung bases. The liver is normal in size and attenuation. There are calcified granulomas in the spleen. The adrenals are normal. The pancreas is unremarkable. The kidneys enhance appropriately. There is extensive left periaortic adenopathy measuring up to 2.7 cm in greatest dimension. There is a left common iliac lymph node measuring up to 3.5 cm in greatest dimension. There is a partially visualized, left external iliac mass measuring 7.2 x 5.2 cm. IMPRESSION: Images only obtained of the abdomen. Partially visualized left external iliac mass again seen, highly concerning for underlying lymphoma. Extensive retroperitoneal and left iliac adenopathy. Recommend CT imaging of the pelvis with and without contrast. Reviewed, Interpreted and Dictated by Laith Bailey MD Transcribed by Gabrielle Zhu Authenticated and [facility]
== END ==
PROVIDERS: PCP Family Medicine; Visit Provider Nurse Practitioner Family
DX: R19.04 Left lower quadrant abdominal swelling, mass and lump (principal)
CPT/HCPCS: 74170; Q9967

== ENCOUNTER → 2022-05-10 10:50 | Outpatient (CLI) | payer MEDICARE, SELFPAY ==
--- NOTE | 2022-05-10 10:56 | CT_ITS ---
FINAL REPORT TECHNIQUE: Axial images were obtained from the iliac crest to the pubic symphysis by computed tomography pre-and postcontrast administration. Coronal and sagittal reformats were submitted. This study was performed with techniques to keep radiation doses as low as reasonably achievable (ALARA). Individualized dose reduction techniques using automated exposure control or adjustment of mA and/or kV according to the patient''s size were employed. CLINICAL HISTORY: LT LOWER QUAD ABD MASS FINDINGS: CT PELVIS W & W/O CONTRAST There is adenopathy involving the para aortic, left common iliac, left external iliac, left internal iliac and left inguinal regions. There is a dominant mass centered in the external iliac region that measures 11 x 6 cm in maximum axial dimension. This is consistent with neoplastic involvement and may represent lymphoma. There are small bilateral inguinal hernias containing fat. There is mild bladder wall thickening, likely inflammatory. There are moderate vascular calcifications. IMPRESSION: Adenopathy as above with a dominant mass centered in the external iliac region which is consistent with neoplastic involvement and may represent lymphoma. Reviewed, Interpreted and Dictated by Rush Brito III, MD Transcribed by Kiesha Cruz Authenticated and [facility]
== END ==
PROVIDERS: PCP Family Medicine; Visit Provider Nurse Practitioner Family
DX: R19.04 Left lower quadrant abdominal swelling, mass and lump (principal)
CPT/HCPCS: 72194; Q9967

== ENCOUNTER 2022-06-29 12:02 | Emergency (ER) | payer MEDICARE, SELFPAY ==
[2022-06-29] VITALS (8 sets, daily range): BP systolic 100–133; BP diastolic 56–84; PULSE 90–114; RESP 18–20; TEMP 37.4; O2SAT 93–95; BMI 28.8
--- NOTE | 2022-06-29 13:12 | HMH.EDGENADL ---
Discharge Plan Disposition Patient Disposition: Home, Self-Care Condition: Good Chief Complaint: Allergic Reaction Prescriptions Prescriptions: No Action rosuvastatin 40 mg tablet 40 mg PO DAILY Qty: 30 2RF carvedilol 12.5 mg tablet See Rx Instructions .ROUTE .COMPLEX Qty: 90 1RF Dose Instruction: TAKE 1 TABLET BY MOUTH TWICE DAILY WITH FOOD Rx Instructions: TAKE 1 TABLET BY MOUTH TWICE DAILY WITH FOOD aspirin 81 MG tablet,delayed release (DR/EC) 81 mg PO DAILY lisinopril 5 MG tablet See Rx Instructions .Route .COMPLEX Rx Instructions: TAKE 1 TABLET BY MOUTH ONCE DAILY Referrals Follow up/Referrals: Flor Parra MD [Primary Care Provider] - See instructions Activity Restrictions/Add. Instructions Additional Instructions/Restrictions: At this time was felt you are safe to be discharged home. If new or worsening symptoms please not hesitate to return for continued evaluation. Please follow-up with your oncologist as discussed.. Clinical Impressions Clinical Impression: Weakness Discharge ED Provider: Sammy Delgado General Adult HPI General Chief complaint: Allergic Reaction Stated complaint: Weakness, poss reaction chemo medication Time Seen by Provider: 06/29/22 13:05 Mode of Arrival: Ambulatory Source of Information: Patient Limitations: No Limitations Description of Symptoms (Recalled from ER Triage Doc. by RN): pt comes to ed for possible allergic reaction. pt states that he began chemo at [facility] around 2 weeks ago. pt reports that rash began 2 days ago. pt also started bactrim 2 days ago. 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 Last chemo cycle approximately 2 weeks ago. Patient was also recently started on Bactrim and had a rash which was attributed to Bactrim which was discontinued. Due to worsening diffuse weakness he presents here for continued evaluation. Patient has had decreased p.o. intake, adequate urine output. Afebrile throughout the course. Patient receives his oncologic care with Andrey Webster at [facility]. Denies worsening cough from baseline. No other acute complaints at this time. Related Data Home Medications Medication Instructions Recorded Confirmed aspirin 81 mg tablet,delayed 81 mg PO DAILY Heart disease 11/28/17 12/24/21 release lisinopril 5 mg tablet See Rx Instructions .Route 10/26/21 12/24/21 .COMPLEX HTN Previous Rx's Medication Instructions Recorded rosuvastatin 40 mg tablet 40 mg PO DAILY High cholesterol 05/12/22 #30 tabs carvedilol 12.5 mg tablet See Rx Instructions .Route 05/23/22 .COMPLEX #90 tabs Allergies Allergy/AdvReac Type Severity Reaction Status Date / Time amoxicillin [AMOXICILLIN] Allergy Unknown Verified 06/29/22 12:24 clavulanic acid Allergy Unknown Verified 06/29/22 12:24 [CLAVULANIC ACID] Sulfa (Sulfonamide Allergy Verified 06/29/22 12:25 Antibiotics) NARCOTICS Allergy Unknown RASH AND Uncoded 12/24/21 09:05 CONSTIPATION PFSH [facility] Disclaimer: The information contained in this section may have been updated after the patient was seen, as this information can be updated by other users. Medical History Daytime somnolence Sciatica Snoring Social History Smoking Status: Former smoker second hand exposure: No alcohol intake: never substance use type: denies use current occupational status: retired Travel in the last 8 weeks: None household members: spouse housing: house current occupational exposures/hazards: No caffeine: Yes ROS Obtained: Yes Systems reviewed as appropriate & no additional complaints except as documented Physical Exam General General
[2022-06-29 13:42] LABS: Basophils % 0.3 % (0.1-2.0); Eosinophils # 0.7 K/mm3 (0.0-0.4); Eosinophils % 6.9 % (0.1-12.0); Hematocrit 42.4 % (42.0-52.0); Hemoglobin 13.9 g/dL (14.1-18.0); Lymphocytes # 1.2 K/mm3 (0.7-4.5); Lymphocytes % 11.6 % (10-50); Mean Corpuscular HGB Conc 32.7 g/dL (31.8-35.4); Mean Corpuscular Hemoglobin 30.7 pg (27.0-31.2); Mean Corpuscular Volume 94.1 fl (80-94); Monocytes # 1.3 K/mm3 (0.1-1.0); Monocytes % 12.8 % (1.7-9.3); Neutrophils # 7.1 K/mm3 (1.8-7.8); Neutrophils % 68.5 % (37.0-80.0); Platelet Count 153 K/mm3 (142-424); Red Blood Count 4.51 M/mm3 (4.60-6.20); Red Cell Distribution Width 13.9 % (11.5-17.5); White Blood Count 10.3 K/mm3 (4.8-10.8)
[2022-06-29 13:45] LABS: Chloride 96 mmol/L (98-107); Sodium 132 mmol/L (136-145)
[2022-06-29 13:46] LABS: Potassium 3.7 mmoL/L (3.5-5.1)
[2022-06-29 13:48] LABS: Alanine Aminotransferase 24 U/L (12-78); Alkaline Phosphatase 62 U/L (38-126); Anion Gap 14.7 mEq/L (5-15); Aspartate Amino Transferase 25 U/L (17-59); Bilirubin,Total 0.8 mg/dl (0.2-1.3); Blood Urea Nitrogen 15 mg/dl (9-20); Carbon Dioxide 25 mmol/L (22.0-30.0); Creatine Kinase 26 U/L (55-170); Creatinine Clearance Estimated 92 mL/min (50-200); Estimated Glomerular Filt Rate 96 ml/min (>60); GFR (African American) 117 ML/MIN (>60); Phosphorous 3.9 mg/dl (2.5-4.5)
[2022-06-29 13:49] LABS: Albumin/Globulin Ratio 1.4 (1.1-1.8); Calcium 8.2 mg/dl (8.4-10.2); Globulin 2.8 g/dL (1.3-3.2); Glucose 126 mg/dl (74-100); Magnesium 1.8 mg/dl (1.6-2.3); Total Protein,Serum 6.8 g/dl (6.3-8.2)
--- NOTE | 2022-06-29 14:06 | ECG_ITS ---
APPROVED REPORT Exam: Resting ECG HR:101 bpm ECG Measurements Heart Rate 101 AXES VA 155 P 26 QRSd 101 QRS -27 QT 356 T 28 QTc 414 Conclusion SINUS TACHYCARDIA INFERIOR MYOCARDIAL INFARCTION , PROBABLY OLD [40+ ms Q WAVE AND/OR ST/T ABNORMALITY IN II/aVF] ABNORMAL ECG INTERPRETATION BASED ON A DEFAULT AGE OF 40 YEARS UNCONFIRMED REPORT Electronically signed by : Rodrick Jeong MD 07/01/2022 09:35:30
[2022-06-29 14:20] LABS: Coronavirus 19, PCR Not Detected (NotDetected); Influenza A, PCR Not Detected (NotDetected); Influenza B, PCR Not Detected (NotDetected)
== END 2022-06-29 16:11 | disposition home or self-care (01) ==
PROVIDERS: Emergency Provider Emergency Medicine; PCP Family Medicine
DX: T78.40XA Allergy, unspecified, initial encounter (principal); R53.1 Weakness; C82.90 Follicular lymphoma, unspecified, unspecified site; Z87.891 Personal history of nicotine dependence
CPT/HCPCS: 80053; 82550; 83735; 84100; 85025; 93005; 96360; 99285; C9803; U0003; U0005

== ENCOUNTER → 2022-09-28 15:17 | Outpatient (CLI) | payer MEDICARE, SELFPAY ==
[2022-09-28 15:34] LABS: Basophils # 0.1 K/mm3 (0-0.2); Basophils % 0.8 % (0.1-2.0); Eosinophils # 0.6 K/mm3 (0.0-0.4); Eosinophils % 6.7 % (0.1-12.0); Hematocrit 38.4 % (42.0-52.0); Hemoglobin 12.6 g/dL (14.1-18.0); Lymphocytes # 1.4 K/mm3 (0.7-4.5); Lymphocytes % 16.7 % (10-50); Mean Corpuscular HGB Conc 32.9 g/dL (31.8-35.4); Mean Corpuscular Hemoglobin 30.4 pg (27.0-31.2); Mean Corpuscular Volume 92.6 fl (80-94); Mean Platelet Volume 8.6 fl (7.4-10.4); Monocytes # 1.4 K/mm3 (0.1-1.0); Monocytes % 16.2 % (1.7-9.3); Neutrophils % 59.6 % (37.0-80.0); Platelet Count 204 K/mm3 (142-424); Red Blood Count 4.15 M/mm3 (4.60-6.20); Red Cell Distribution Width 15.2 % (11.5-17.5); White Blood Count 8.4 K/mm3 (4.8-10.8)
== END ==
PROVIDERS: PCP Family Medicine; Visit Provider Physician Assistant
DX: C82.90 Follicular lymphoma, unspecified, unspecified site (principal)
CPT/HCPCS: 36415; 85025

== ENCOUNTER → 2022-10-18 09:14 | Outpatient (CLI) | payer MEDICARE, SELFPAY ==
--- NOTE | 2022-10-18 | CA_ITS ---
APPROVED REPORT EXAM: Comprehensive 2D, Doppler, and color-flow Echocardiogram Supervisory Examiner: Cindy Peralta RT(R) Ht: 5 ft 10 in Wt: 195lbs BSA: 2.07 BP: 110/72 mmHg Indications: HTN, SOB, fatigue, hyperlipidemia, on chemo for lymphoma, CAD, CM. 2D Dimensions LVOT 2.06 cm (M/F) 1.5-2.5 LVEF (Rudd's) 24.00 % M: 52 - 72 LV Volume 97.30 mL M: 62 - 150 LV Volume Index 47.00 mL/m2 M: 34 - 74 LA Volume 32.10 mL LA Volume Index 15.51 mL/m2 (M/F) 16-34 M-Mode Dimensions RVDd 3.02 cm (0.9-2.6) LA Diam 3.41 cm (1.9-4.0) LVDd 4.89 cm (3.5-5.7) Ao Diam 2.90 cm (2.0-3.7) LVDs 3.70 cm (3.5-5.7) IVSd 0.98 cm (0.6-1.1) PWd 1.02 cm (0.6-1.1) EF (Teich) 48.30% FS 24.30% EDV (Teich) 112.30 mL ESV (Teich) 58.10 mL LV Diastology E Decel Time 150.00 (160-240 msec) E/A Ratio 0.7 MED E' 7.70 (< 7 cm/sec) E'/MED E' Ratio 7.62 (>14) LAT E' 8.90 (<10 cm/sec) E/LAT E' Ratio 6.60 (>14) Aortic Valve AI PHT 692.00 ms Mitral Valve MV E Max Blair. 59.00 (40-130 cm/s) MV A Velocity 90.00 (40-130 cm/s) E/A Ratio 0.66 MV Decel. Time 150.00 (160-240 ms) MV PHT 44.00 ms Left Ventricle The left ventricle is normal size. Left ventricular systolic function is low-normal. There is normal left ventricular wall thickness. There is borderline global hypokinesis present. The left ventricular diastolic function is normal. LVEF is 50%. Right Ventricle The right ventricle is normal size. The right ventricular systolic function is normal. Atria The left atrium size is normal. The right atrium size is normal. There is no Doppler evidence of interatrial shunt. Aortic Valve The aortic valve opens well. There is no aortic valvular stenosis. Mild aortic regurgitation. Mitral Valve The mitral valve is normal in structure. No evidence of mitral valve stenosis. There is trace mitral valve regurgitation noted. Tricuspid Valve The tricuspid valve leaflets are thin and pliable. Trace tricuspid regurgitation. RVSP is normal. Pulmonic Valve The pulmonary valve is normal in structure. Trace pulmonic regurgitation. Great Vessels The aortic root is normal in size. IVC is normal in size and collapses >50% with inspiration. Pericardium There is no pericardial effusion. Other Information Study Quality: Fair Conclusion Low-normal LV systolic function. No significant valvular disease. Electronically signed by : Nery Hernandez, 10/18/2022 18:43:27
== END ==
PROVIDERS: PCP Family Medicine; Visit Provider Physician Assistant
DX: R06.02 Shortness of breath (principal); I25.10 Atherosclerotic heart disease of native coronary artery without angina pectoris; I42.8 Other cardiomyopathies; I10 Essential (primary) hypertension; E78.5 Hyperlipidemia, unspecified; R53.83 Other fatigue
CPT/HCPCS: 93306

== ENCOUNTER → 2022-11-03 10:55 | Outpatient (CLI) | payer MEDICARE, SELFPAY ==
[2022-11-03 18:38] LABS: Alanine Aminotransferase 33 U/L (12-78); Albumin Level 4.6 g/dl (3.5-5.0); Alkaline Phosphatase 83 U/L (38-126); Aspartate Amino Transferase 42 U/L (17-59); Bilirubin,Indirect 0.6 mg/dL (0.0-0.9); Bilirubin,Total 0.6 mg/dl (0.2-1.3); Bilirubin,Unconjugated 0.7 mg/dL (0.0-1.1); Chol/HDL Ratio 4.3 (1-3.5); Cholesterol 120 mg/dl (140-200); HDL Cholesterol 28 mg/dl (40-60); Total Protein,Serum 6.8 g/dl (6.3-8.2); Triglycerides 192 mg/dl (30-150); VLDL Cholesterol 38 mg/dL (0-40)
[2022-11-03 18:49] LABS: Direct LDL Cholesterol 70.04 mg/dL (100-129)
== END ==
PROVIDERS: PCP Family Medicine; Visit Provider Nurse Practitioner
DX: E78.2 Mixed hyperlipidemia (principal)
CPT/HCPCS: 36415; 80061; 80076

== ENCOUNTER 2023-02-13 00:35 | Emergency (ER) | payer MEDICARE, SELFPAY ==
[2023-02-13] VITALS (9 sets, daily range): BP systolic 99–133; BP diastolic 56–76; PULSE 63–83; RESP 16–20; TEMP 36.8; O2SAT 93–97; BMI 27.9
--- NOTE | 2023-02-13 00:39 | ECG_ITS ---
APPROVED REPORT Exam: Resting ECG HR:80 bpm ECG Measurements Heart Rate 80 AXES TN 181 P 41 QRSd 101 QRS -19 QT 380 T 3 QTc 416 Conclusion SINUS RHYTHM LOW QRS VOLTAGE IN PRECORDIAL LEADS [QRS DEFLECTION < 1.0 mV IN CHEST LEADS] INFERIOR MYOCARDIAL INFARCTION , PROBABLY OLD [40+ ms Q WAVE AND/OR ST/T ABNORMALITY IN II/aVF] ABNORMAL ECG UNCONFIRMED REPORT Electronically signed by : Rodrick Jeong MD 02/13/2023 08:23:34
--- NOTE | 2023-02-13 00:41 | HMH.EDGENADL ---
Discharge Plan Disposition Patient Disposition: Still a Patient Prescriptions Prescriptions: No Action spironolactone [Aldactone] 25 mg tablet 25 mg PO DAILY Qty: 30 2RF Jardiance 10 mg tablet 10 mg PO DAILY Qty: 30 2RF rosuvastatin 40 mg tablet 40 mg PO DAILY Qty: 30 2RF lisinopril 5 mg tablet See Rx Instructions .ROUTE .COMPLEX Qty: 90 2RF Dose Instruction: TAKE 1 TABLET BY MOUTH ONCE DAILY Rx Instructions: TAKE 1 TABLET BY MOUTH ONCE DAILY carvedilol 12.5 mg tablet See Rx Instructions .ROUTE .COMPLEX Qty: 90 1RF Dose Instruction: TAKE 1 TABLET BY MOUTH TWICE DAILY WITH FOOD Rx Instructions: TAKE 1 TABLET BY MOUTH TWICE DAILY WITH FOOD aspirin 81 MG tablet,delayed release (DR/EC) 81 mg PO DAILY Referrals Follow up/Referrals: Provider,Referral, MD [Primary Care Provider] - See instructions Activity Restrictions/Add. Instructions Additional Instructions/Restrictions: Please follow-up with your primary care provider. Please return to the emergency department if you develop any new or worsening symptoms or become concerned for your health. Clinical Impressions Clinical Impression: Chest pain Qualifiers: Chest pain type: unspecified Qualified Code(s): R07.9 - Chest pain, unspecified Discharge ED Provider: Robin Lewis General Adult HPI General Chief complaint: Chest Pain Stated complaint: CP Time Seen by Provider: 02/13/23 00:37 History of Present Illness HPI narrative: 67-year-old male, history of coronary artery disease status post multiple stents, most recently several years ago, on aspirin presents with chest pain. It started a couple hours prior to arrival. Bilateral and central in nature. He reports it does not feel consistent with prior episodes of HI. Reports no recent fever or illness. Reports shortness of breath is stable from prior. Related Data Home Medications Medication Instructions Recorded Confirmed aspirin 81 mg tablet,delayed 81 mg PO DAILY Heart disease 11/28/17 02/13/23 release Previous Rx's Medication Instructions Recorded rosuvastatin 40 mg tablet 40 mg PO DAILY High cholesterol 05/12/22 #30 tabs lisinopril 5 mg tablet See Rx Instructions .Route 08/23/22 .COMPLEX #90 tabs carvedilol 12.5 mg tablet See Rx Instructions .Route 12/01/22 .COMPLEX #90 tabs empagliflozin 10 mg tablet 10 mg PO DAILY #30 tabs 01/26/23 (Jardiance) spironolactone 25 mg tablet 25 mg PO DAILY #30 tabs 01/26/23 (Aldactone) Allergies Allergy/AdvReac Type Severity Reaction Status Date / Time amoxicillin [AMOXICILLIN] Allergy Unknown Verified 01/26/23 09:00 clavulanic acid Allergy Unknown Verified 01/26/23 09:00 [CLAVULANIC ACID] Sulfa (Sulfonamide Allergy Verified 01/26/23 09:00 Antibiotics) NARCOTICS Allergy Unknown RASH AND Uncoded 01/26/23 09:00 CONSTIPATION PFSH [facility] Disclaimer: The information contained in this section may have been updated after the patient was seen, as this information can be updated by other users. Medical History Daytime somnolence Sciatica Snoring Stage 1 low grade lymphoma Social History Smoking Status: Never smoker second hand exposure: No alcohol intake: never substance use type: denies use current occupational status: retired Travel in the last 8 weeks: None household members: spouse housing: house current occupational exposures/hazards: No caffeine: Yes ROS Obtained: Yes All systems reviewed & no additional complaints except as documented Physical Exam General General appearance: alert and in no apparent distress Head Head exam: atraumatic and normocephalic Eye Eye exam: Present normal appearance, PERRL and EOMI ENT ENT exam: Present normal oropharynx and normal external ear exam Neck Neck exam: Present normal inspection and ful
--- NOTE | 2023-02-13 00:42 | XR_ITS ---
PROCEDURE INFORMATION: Exam: XR Chest Exam date and time: 02/13/2023 1:10 AM Age: 67 years old Clinical indication: Pain; Chest pressure; Additional info: Chest pain TECHNIQUE: Imaging protocol: Radiologic exam of the chest. Views: 1 view. COMPARISON: CR XR RIBS LT MIN 3V W CXR1V 07/24/2019 10:46 AM FINDINGS: Lungs: Small right lower lobe calcified granuloma. No consolidation. Pleural spaces: Unremarkable. No pleural effusion. No pneumothorax. Heart/Mediastinum: Calcified atherosclerotic changes of the thoracic aorta. No cardiomegaly. Bones/joints: No acute findings. IMPRESSION: No acute pulmonary findings.
[2023-02-13 00:50] LABS: Basophils % 0.8 % (0.1-2.0); Eosinophils # 0.2 K/mm3 (0.0-0.4); Eosinophils % 5.7 % (0.1-12.0); Hematocrit 39.4 % (42.0-52.0); Hemoglobin 13.5 g/dL (14.1-18.0); Lymphocytes % 27.6 % (10-50); Mean Corpuscular HGB Conc 34.2 g/dL (31.8-35.4); Mean Corpuscular Hemoglobin 32.3 pg (27.0-31.2); Mean Corpuscular Volume 94.7 fl (80-94); Mean Platelet Volume 7.7 fl (7.4-10.4); Monocytes # 0.5 K/mm3 (0.1-1.0); Monocytes % 14.8 % (1.7-9.3); Neutrophils # 1.8 K/mm3 (1.8-7.8); Neutrophils % 51.1 % (37.0-80.0); Platelet Count 223 K/mm3 (142-424); Red Blood Count 4.16 M/mm3 (4.60-6.20); Red Cell Distribution Width 14.8 % (11.5-17.5); White Blood Count 3.5 K/mm3 (4.8-10.8)
[2023-02-13 00:53] LABS: Chloride 101 mmol/L (98-107); Potassium 3.7 mmoL/L (3.5-5.1); Sodium 139 mmol/L (136-145)
[2023-02-13 00:55] LABS: Blood Urea Nitrogen 17 mg/dl (9-20); Creatinine Clearance Estimated 88 mL/min (50-200); Estimated Glomerular Filt Rate 96 ml/min (>60); GFR (African American) 116 ML/MIN (>60)
[2023-02-13 00:56] LABS: Alanine Aminotransferase 45 U/L (12-78); Albumin Level 4.9 g/dl (3.5-5.0); Albumin/Globulin Ratio 1.8 (1.1-1.8); Alkaline Phosphatase 72 U/L (38-126); Anion Gap 14.7 mEq/L (5-15); Aspartate Amino Transferase 50 U/L (17-59); Bilirubin,Total 0.6 mg/dl (0.2-1.3); Calcium 9.4 mg/dl (8.4-10.2); Carbon Dioxide 27 mmol/L (22.0-30.0); Globulin 2.8 g/dL (1.3-3.2); Glucose 162 mg/dl (74-100); Total Protein,Serum 7.7 g/dl (6.3-8.2)
[2023-02-13 01:02] LABS: D-Dimer 0.59 ug/mL (0.0-0.5)
[2023-02-13 01:13] LABS: Troponin I < 0.01 ng/ml (0.00-0.034)
[2023-02-13 04:10] LABS: Troponin I < 0.01 ng/ml (0.00-0.034)
== END 2023-02-13 04:22 | disposition home or self-care (01) ==
PROVIDERS: Emergency Provider Emergency Medicine
DX: R07.89 Other chest pain (principal); Z86.79 Personal history of other diseases of the circulatory system; Z95.5 Presence of coronary angioplasty implant and graft
CPT/HCPCS: 71045; 80053; 84484; 85025; 85378; 93005; 99284

== ENCOUNTER 2023-05-01 09:39 | Outpatient (CLI) | payer MEDICARE, SELFPAY ==
[2023-05-01 10:26] LABS: Basophils % 0.6 % (0.1-2.0); Eosinophils # 0.1 K/mm3 (0.0-0.4); Eosinophils % 2.6 % (0.1-12.0); Hematocrit 39.7 % (42.0-52.0); Hemoglobin 13.5 g/dL (14.1-18.0); Lymphocytes # 1.2 K/mm3 (0.7-4.5); Lymphocytes % 30.6 % (10-50); Mean Corpuscular HGB Conc 34.1 g/dL (31.8-35.4); Mean Corpuscular Volume 96.9 fl (80-94); Monocytes # 0.5 K/mm3 (0.1-1.0); Monocytes % 13.6 % (1.7-9.3); Neutrophils # 2.1 K/mm3 (1.8-7.8); Neutrophils % 52.5 % (37.0-80.0); Platelet Count 226 K/mm3 (142-424); Red Cell Distribution Width 14.1 % (11.5-17.5); White Blood Count 3.9 K/mm3 (4.8-10.8)
[2023-05-01 10:46] LABS: Chloride 105 mmol/L (98-107)
[2023-05-01 10:47] LABS: Potassium 4.8 mmoL/L (3.5-5.1); Sodium 137 mmol/L (136-145)
[2023-05-01 10:49] LABS: Alanine Aminotransferase 55 U/L (12-78); Alkaline Phosphatase 59 U/L (38-126); Anion Gap 13.8 mEq/L (5-15); Aspartate Amino Transferase 58 U/L (17-59); Bilirubin,Direct 0.1 mg/dl (0.0-0.4); Bilirubin,Indirect 0.8 mg/dL (0.0-0.9); Bilirubin,Total 0.9 mg/dl (0.2-1.3); Bilirubin,Unconjugated 0.8 mg/dL (0.0-1.1); Blood Urea Nitrogen 10 mg/dl (9-20); Carbon Dioxide 23 mmol/L (22.0-30.0); Cholesterol 158 mg/dl (140-200); Estimated Glomerular Filt Rate 112 ml/min (>60); GFR (African American) 136 ML/MIN (>60); Total Protein,Serum 7.3 g/dl (6.3-8.2); Triglycerides 198 mg/dl (30-150); VLDL Cholesterol 40 mg/dL (0-40)
[2023-05-01 10:50] LABS: Calcium 9.4 mg/dl (8.4-10.2); Glucose 123 mg/dl (74-100); HDL Cholesterol 40 mg/dl (40-60); Magnesium 2.1 mg/dl (1.6-2.3)
[2023-05-01 11:08] LABS: Free T4 (Free Thyroxine) 0.88 ng/dl (0.78-2.19)
[2023-05-01 11:12] LABS: Direct LDL Cholesterol 75.62 mg/dL (100-129)
[2023-05-01 11:21] LABS: Thyroid Stimulating Hormone 1.32 uIU/mL (0.465-4.68)
== END 2023-05-01 23:59 ==
LOC: LAB 10:33
PROVIDERS: PCP Family Medicine; Visit Provider Physician Assistant
DX: E78.5 Hyperlipidemia, unspecified (principal); G47.33 Obstructive sleep apnea (adult) (pediatric); I25.10 Atherosclerotic heart disease of native coronary artery without angina pectoris; I35.1 Nonrheumatic aortic (valve) insufficiency; I50.20 Unspecified systolic (congestive) heart failure; R07.9 Chest pain, unspecified; I42.8 Other cardiomyopathies
CPT/HCPCS: 36415; 80048; 80061; 80076; 83735; 84439; 84443; 85025

== ENCOUNTER 2023-05-08 07:15 | Outpatient (CLI) | payer MEDICARE, SELFPAY ==
--- NOTE | 2023-05-08 07:16 | NM_ITS ---
APPROVED REPORT Exam: Nuclear Stress Test Indication: Chest pain, SOB, High cholesterol, CAD, Hx of AL Patient Location: Outpatient Stress Tech: Padmaja Bearden PR Tech:Aileen Saenz, ARRT, RT (R)(N) Ht: 5 ft 10 in Wt: 198 lbs HR: 70 bpm BP: 110/65 mmHg BSA: 2.08 m2 TID: 1.12 BMI: 28.4 History: Chest pain, SOB, High cholesterol, CAD, Hx of AL Procedure: Patient received 0.4 mg of intravenous Lexiscan, resting heart rate 70 bpm, resting blood pressure 110/65 mmHg, with Lexiscan maximum heart rate achieved was 97 bpm which is % of the maximum predicted heart rate and blood pressure was 110/65 mmHg. With Lexiscan, patient denied any complaint of chest pain. Cardiac Stress and Resting SPECT Images: Cardiac Stress and Resting SPECT images were obtained using technetium 99m Myoview 29.6 mCi stress and 10.57 mCi at rest. Resting and stress imaging in supine and prone positions demonstrate a large sized, severe, fixed perfusion defect in the inferior LV wall from the base and extending distally towards the inferior apical region. Gated imaging demonstrates moderate reduction in global LV systolic function. There is severe hypokinesis of the inferior LV wall. LVEF is calculated at 35%. Conclusion: Large sized, severe, fixed perfusion defect in the inferior LV wall from the base and extending distally towards the inferior apical region. No evidence of reversible ischemia. Gated imaging demonstrates moderate reduction in global LV systolic function. There is severe hypokinesis of the inferior LV wall. LVEF is calculated at 35%. Electronically signed by : Nery Hernandez MD 05/08/2023 11:29:00
--- NOTE | 2023-05-08 10:24 | CA_ITS ---
APPROVED REPORT Exam: Pharmacologic Technologist: Padmaja Bearden Ht: 5 ft 10 in Wt: 198 lbs BSA: 2.08 m2 HR: 68 bpm BP: 110/65 mmHg Rhythm: NSR Indications: CAD, Chest pain Medical History Medications: Lisinopril,,,,, Aspirin,,,,, Carvedilol,,,,, Aldactone,,,,, RoSUVASTATIN,,,,, Stress Test Details Test: LEXISCAN HR Resting HR: 70 bpm Max Heart Rate (APMHR): 152 bpm Max HR Achieved: 97 bpm Target HR (85% APMHR): 129 bpm % of APMHR: 64 Recovery HR: 83 bpm BP Resting BP: 110.0/65.0 mmHg Max BP: 110.0/65.0 mmHg Recovery BP: 109.0/62.0 mmHg ECG Resting ECG: Sinus rhythm, nonspecific ST changes, PVC Stress ECG: No significant ST changes Arrhythmia: PVCs Clinical Exercise duration: 04:00 min Highest Stage Achieved: Exercise capacity: 1.0 METs Stress ECG Conclusion Symptoms: Chest tightness 7/10, Shortness of air, Nausea with Lexiscan. Resolved quickly. Arrhythmias/Ectopy: PVCs ST-T Changes: No significant ST changes Conclusion: Unremarkable Lexiscan stress test. Myoview images are reported separately. Test Summary REST . . . . . . . Resting REST 13:25 . . 70 . 110/ 65 . . Stage 1 . . . . . . . Myoview Injected Stage 1 01:00 . . 87 . . . . Stage 2 . . . . . . . chest tightness Shortness of Breath Stage 2 01:00 . . 95 . 103/ 58 . . Stage 3 01:00 . . 86 . 109/ 63 . . Stage 4 01:00 . . 84 . 107/ 58 . Stop exercise at 04:00 RECOVERY 01:00 . . 84 . 102/ 61 . . RECOVERY 02:00 . . 81 . 102/ 61 . . RECOVERY 03:00 . . 81 . 109/ 62 . . RECOVERY 03:36 . . 77 . 109/ 62 . . Electronically signed by : Nery Hernandez MD 05/08/2023 11:26:08
[2023-05-08] MEDS: REGADENOSON 0.4MG/5ML SYRINGE 0.400000000000000022 MG IV (10:58)
[2023-05-08] MEDS: SODIUM CHLORIDE 0.9% 10ML SYR (RAD ONLY) 10 ML IV ×2 (10:59)
[2023-05-08] MEDS: ISOTOPE MYOVIEW (PER STUDY) 1 DOSE IV (10:59)
== END 2023-05-08 23:59 ==
LOC: RAD 07:16
PROVIDERS: PCP Family Medicine; Visit Provider Physician Assistant
DX: R07.9 Chest pain, unspecified (principal); I25.118 Atherosclerotic heart disease of native coronary artery with other forms of angina pectoris; Z95.5 Presence of coronary angioplasty implant and graft; I42.8 Other cardiomyopathies; R94.31 Abnormal electrocardiogram [ECG] [EKG]
CPT/HCPCS: 78452; 93017; 93018; A9502; J2785

== ENCOUNTER 2023-07-27 09:33 | Outpatient (CLI) | payer MEDICARE, SELFPAY ==
--- NOTE | 2023-07-27 10:16 | XR_ITS ---
FINAL REPORT CLINICAL HISTORY: RT FOOT PAIN COMPARISON: None FINDINGS: RIGHT FOOT: Three views of the right foot were obtained. There is no acute fracture or dislocation. Mild degenerative change is present as well as a hallux valgus deformity. There is calcification in the plantar aponeurosis. IMPRESSION: No acute bony abnormality. Mild degenerative change and a hallux valgus deformity. Reviewed, Interpreted and Dictated by Rush Brito III, MD Transcribed by Cheli Porras Authenticated and [facility]
== END 2023-07-27 23:59 | disposition home or self-care (01) ==
LOC: RAD 09:35
PROVIDERS: PCP Family Medicine; Visit Provider Nurse Practitioner
DX: M79.671 Pain in right foot (principal)
CPT/HCPCS: 73630

== ENCOUNTER 2023-11-07 09:34 | Outpatient (CLI) | payer MEDICARE, SELFPAY ==
--- NOTE | 2023-11-07 09:48 | XR_ITS ---
FINAL REPORT CLINICAL HISTORY: .hip pain after walking on concrete COMPARISON: None FINDINGS: RIGHT HIP Two views of the right hip demonstrate no acute fracture or dislocation. There is abnormal sclerosis of the femoral head concerning for underlying avascular necrosis. There is mild narrowing of the hip joint space. The visualized bony structures are well aligned. No soft tissue abnormality is seen. IMPRESSION: Findings concerning for underlying avascular necrosis. Hip MRI could confirm. Reviewed, Interpreted and Dictated by Laith Bailey MD Transcribed by Sarah Huggins Authenticated and [facility]
--- NOTE | 2023-11-07 09:48 | XR_ITS ---
FINAL REPORT CLINICAL HISTORY: BILATERAL HIP PAIN COMPARISON: None FINDINGS: LEFT HIP: Two views of the left hip with an AP view of the pelvis demonstrate no acute fracture or dislocation. There is abnormal sclerosis of the superior portion of the left femoral head concerning for localized avascular necrosis. This is well seen on the lateral view. There is mild narrowing of the hip joint space. The visualized bony structures are well aligned. No soft tissue abnormality is seen. IMPRESSION: Findings concerning for avascular necrosis. Hip MRI could confirm. Reviewed, Interpreted and Dictated by Laith Bailey MD Transcribed by Sarah Huggins Authenticated and . [facility]
== END 2023-11-07 23:59 | disposition home or self-care (01) ==
LOC: RAD 09:36
PROVIDERS: PCP Family Medicine; Visit Provider Nurse Practitioner
DX: M25.551 Pain in right hip (principal); M25.552 Pain in left hip
CPT/HCPCS: 73502

== ENCOUNTER 2023-11-24 08:13 | Outpatient (CLI) | payer MEDICARE, SELFPAY ==
--- NOTE | 2023-11-24 | MR_ITS ---
FINAL REPORT CLINICAL HISTORY: .bilateral hip pain COMPARISON: None FINDINGS: Multiplanar MR imaging of the right hip was performed with and without contrast. There is no evidence of fracture or dislocation. There is a 22 mm focus of abnormal signal in the anterior superior right femoral head consistent with avascular necrosis. No evidence of flattening of the femoral head is identified. No bony mass is identified. No labral tear is identified. A small joint effusion is seen. There is a partial tear of the insertion of the gluteus minimus muscle with adjacent soft tissue edema. The musculature is intact. No soft tissue mass or cyst is identified. There is no abnormal contrast enhancement. IMPRESSION: 22 mm focus of abnormal signal in the anterior superior right femoral head, consistent with avascular necrosis. No evidence of flattening of the femoral head is seen. Small joint effusion. Partial tear of the insertion of the gluteus minimus tendon with adjacent soft tissue edema. Reviewed, Interpreted and Dictated by Rush Brito III, MD Transcribed by Cheli Porras Authenticated and [facility]
--- NOTE | 2023-11-24 | MR_ITS ---
FINAL REPORT CLINICAL HISTORY: ..bilateral hip pain COMPARISON: None FINDINGS: Multiplanar MR imaging of the left hip was performed with and without contrast. There is no evidence of fracture or dislocation. There is a focus of abnormal signal in the anterior superior femoral head, measuring 16 mm in diameter, consistent with avascular necrosis. There is no evidence of flattening of the femoral head. No bony mass is identified. No labral tear is identified. A small joint effusion is seen. The tendons are intact. The musculature is intact. There is subcutaneous edema in the left inguinal soft tissues, a finding of uncertain significance and nonspecific. There is no abnormal contrast enhancement. IMPRESSION: Abnormal signal in the anterior superior femoral head consistent with avascular necrosis. No flattening of the femoral head is identified. A small joint effusion is present. Left inguinal subcutaneous edema is present, nonspecific, and clinical correlation is suggested. Reviewed, Interpreted and Dictated by Rush Brito III, MD Transcribed by Cheli Porras Authenticated and [facility]
[2023-11-24] MEDS: GADOTERIDOL INJ 20ML SYRINGE 18 ML IV (09:32)
[2023-11-24] MEDS: SODIUM CHLORIDE 0.9% 10ML SYR (RAD ONLY) 10 ML IV (09:32)
== END 2023-11-24 23:59 | disposition home or self-care (01) ==
LOC: RAD 08:13
PROVIDERS: PCP Nurse Practitioner; Visit Provider Nurse Practitioner
DX: M87.052 Idiopathic aseptic necrosis of left femur (principal); M87.051 Idiopathic aseptic necrosis of right femur
CPT/HCPCS: 73723; A9576

== ENCOUNTER 2024-03-18 12:35 | Emergency (ER) | payer MEDICARE, SELFPAY ==
[2024-03-18 13:40] VITALS: BP 110/72; PULSE 89; RESP 20; TEMP 36.7; O2SAT 98; BMI 28.1
[2024-03-18 14:00] LABS: UTC Influenza A Antigen Negative (Negative)
[2024-03-18 14:01] LABS: UTC Influenza B Antigen Negative (Negative)
--- NOTE | 2024-03-18 14:04 | EXP.UTC ---
Discharge Plan Disposition Patient Disposition: Home, Self-Care Condition: Good Prescriptions Prescriptions: New azithromycin [Zithromax Z-Arnoldo] 250 mg tablet See Rx Instructions .ROUTE .COMPLEX 5 Days Qty: 6 0RF Rx Instructions: For 250 mg dose pack: take 500 mg today (day 1), then 250 mg for 4 days (days 2-5) benzonatate 100 mg capsule 100 mg PO TID PRN (Reason: cough) Qty: 30 0RF methylprednisolone [Medrol (Arnoldo)] 4 mg tablets,dose pack See Rx Instructions .Route .COMPLEX 6 Days Qty: 21 0RF Rx Instructions: taper pack; No Action ezetimibe 10 mg tablet 10 mg PO DAILY Patient Comments: TAKE 1 TABLET BY MOUTH ONCE DAILY Referrals Follow up/Referrals: Tana Perez APRN [Primary Care Provider] - See instructions Activity Restrictions/Add. Instructions Additional Instructions/Restrictions: Start antibiotic today. Be sure to complete entire prescription even if feeling better Monitor temp. Tylenol every 4 hours as needed and / or ibuprofen every 6 hours as needed ( As long as your primary care physician has told you that it ok to take both. For fever/aches/pains ER if no less than 101 despite Tylenol or Motrin Humidifier/vaporizer or hot steamy shower *Tessalon Perles will not cause drowsiness but use at bedtime to help stop cough so that you may get some rest. *Start steroid today. Helps with inflammation therefore, cough and wheezing. Follow directions on the package. Reviewed side effects. Patient reports taking them before. Follow up IMMEDIATELY for new or worsening of symptoms OR no noticeable improvement over the next 48-72 hours. 911 immediately for any life threatening symptoms such as chest pain or difficulty breathing Clinical Impressions Clinical Impression: Sinusitis Instructions Patient Instructions: DI for Sinusitis, Sinusitis Print Language Print Language: Turkmen Discharge ED Provider: Samreen Crandall [facility] HPI General Stated complaint: congestion, congestion, wheezing Mode of Arrival: Ambulatory Source of Information: Patient Limitations: No Limitations Time Seen by Provider: 03/18/24 14:05 Description of Symptoms (Recalled from Triage Doc. by RN): PATIENT CO COUGH, RUNNY NOSE, CHEST CONGESTION AND FEVER X 4 DAYS HEENT Symptoms (Recalled from RN notes): Yes Resp Symptoms (Recalled from RN notes): Yes Skin Symptoms (Recalled from RN notes): No MS Symptoms (Recalled from RN notes): No Functional Status (Recalled from RN notes): WNL History of Present Illness Provider Complaint: Patient state that for the last week he has been having sinus congestion and pressure, drainage in the back of his throat runny nose and chest congestion States that he thought it would get better but has continued to get worse so he came in Related Data Home Medications ?Medication ?Instructions ?Recorded ?Confirmed ezetimibe 10 mg tablet 10 mg PO DAILY 03/18/24 03/18/24 Previous Rx's ?Medication ?Instructions ?Recorded azithromycin 250 mg tablet See Rx Instructions PO .COMPLEX 5 03/18/24 (Zithromax Z-Arnoldo) days #6 tabs benzonatate 100 mg capsule 100 mg PO TID PRN cough #30 caps 03/18/24 methylprednisolone 4 mg tablets in See Rx Instructions .Route 03/18/24 a dose pack (Medrol (Arnoldo)) .COMPLEX 6 days #21 tabs Allergies Allergy/AdvReac Type Severity Reaction Status Date / Time amoxicillin (AMOXICILLIN) Allergy Unknown Verified 11/13/23 14:08 clavulanic acid (CLAVULANIC Allergy Unknown Verified 11/13/23 14:08 ACID) Sulfa (Sulfonamide Allergy Verified 11/13/23 14:08 Antibiotics) NARCOTICS Allergy Unknown RASH AND Uncoded 11/13/23 14:08 CONSTIPATION Worker's Comp Is this a Worker's Comp case?: No [facility] Disclaimer: The information contained in this section may have been updated after the patient was seen, as this information can be updated by other users. Medical History Stage 1 low grade lymphoma Sciatica Daytime somnolence Snoring Social History Smoking Status: Never smoker second hand exposure: No alcohol intake: never substance use type: denies use current occupational status: retired Travel in the last 8 weeks: None household members: spouse housing: house current occupational exposures/hazards: No caffeine: Yes Have you lived/traveled outside US in past 30 days?: No Contact w/someone who lives/traveled outside US past 30 days?: No Exposure to someone with infectious disease in past 14 days?: No Do you have a fever (greater than 100.4 F or 38 C)?: No Have you tested positive for COVID-19: No Exposed to someone with COVID-19 in past 14 days?: No Do you have a sore throat?: No Do you have a cough?: Yes Do you have any weakness?: No Do you have any diarrhea?: No Are you experiencing any unusual bleeding?: No Do you have any muscle aches/pain?: No Do you have any abdominal pain?: No Are you experiencing loss of taste or smell?: No ROS Obtained: Yes All systems reviewed & no additional complaints except as documented and Yes Systems reviewed as appropriate & no additional complaints except as documented Constitutional Constitutional: Reports system reviewed and no additional complaints, except as documented, Reports as per HPI and Reports fever(s) (low grade) ENT Ears, Nose, Mouth, and Throat: Reports system reviewed and no additional complaints, except as documented, Reports as per HPI, Reports sinus pain and Reports sinus pressure Cardiovascular Cardiovascular: Reports system reviewed and no additional complaints, except as documented and Reports as per HPI Respiratory Respiratory: Reports system reviewed and no additional complaints, except as documented, Reports as per HPI, Denies shortness of breath, Reports chest congestion and Reports cough Gastrointestinal Gastrointestingal: Reports system reviewed and no additional complaints, except as documented and as per HPI Physical Exam General General appearance: alert and in no apparent distress ENT ENT exam: Present mucous membranes moist Expanded ENT Exam Nose exam: Present sinus tenderness Throat exam: Present other (Pharyngeal erythema noted with pND) Respiratory Respiratory exam: Present normal lung sounds bilaterally; Absent respiratory distress or wheezes Cardiovascular Cardiovascular exam: Present regular rate, normal rhythm and normal heart sounds Abdominal Exam Abdominal exam: Present soft and normal bowel sounds; Absent distention or tenderness Neurological Exam Neurological exam: Present alert, oriented X3 and normal gait Medical Decision Making Medical Records Screening: Per USPSTF and CDC recommendations, given the prevalence of disease in our region, it is our hospital?s policy to screen for HIV and viral Hepatitis for all patients aged 18 and over and those with ongoing risk factors. Erlin Inquiry Pt receiving controlled substance: No Erlin was queried for this patient: No Vital Signs: 03/18/24 13:40 Temperature 98.1 F Temperature Source Oral Pulse Rate [Left Brachial] 89 Respiratory Rate 20 Blood Pressure [Left Arm] 110/72 Blood Pressure Mean [Left Arm] 84 Blood Pressure Source [Left Arm] Automatic Cuff Blood Pressure Position [Left Arm] Sitting 02 Sat by Pulse Oximetry 98 Oxygen Delivery Method Room Air Lab Data Lab results reviewed: Yes I reviewed the patient's lab results. Lab Results 03/18/24 13:41: Influenza Type A Ag Negative, Influenza Type B Ag Negative Medical Decision Narrative: Patient states tht he has taken azithromycin and Medrol in the past without complications or reactions
[2024-03-18 14:15] VITALS: BP 110/72; PULSE 89; RESP 20; TEMP 36.7; O2SAT 98
== END 2024-03-18 14:22 | disposition home or self-care (01) ==
PROVIDERS: Emergency Provider Nurse Practitioner; PCP Nurse Practitioner
DX: J32.9 Chronic sinusitis, unspecified (principal); R50.9 Fever, unspecified; R05.9 Cough, unspecified; R06.2 Wheezing; R09.89 Other specified symptoms and signs involving the circulatory and respiratory systems
CPT/HCPCS: 87804; 99212; G0381

== ENCOUNTER 2024-05-29 06:59 | Outpatient (CLI) | payer MEDICARE, SELFPAY ==
[2024-05-29] MEDS: SODIUM CHLORIDE 0.9% 10ML SYR (RAD ONLY) 10 ML IV ×2 (07:10→09:00)
[2024-05-29] MEDS: REGADENOSON 0.4MG/5ML SYRINGE 0.4 MG IV (09:00)
[2024-05-29] MEDS: ISOTOPE MYOVIEW (PER STUDY) 1 DOSE IV (10:02)
== END 2024-05-29 23:59 | disposition home or self-care (01) ==
LOC: RAD 07:00
PROVIDERS: PCP Family Medicine; Visit Provider Physician Assistant
DX: I25.118 Atherosclerotic heart disease of native coronary artery with other forms of angina pectoris (principal); R07.89 Other chest pain; I50.22 Chronic systolic (congestive) heart failure; G47.33 Obstructive sleep apnea (adult) (pediatric); I35.1 Nonrheumatic aortic (valve) insufficiency; R06.02 Shortness of breath; I42.9 Cardiomyopathy, unspecified; E78.2 Mixed hyperlipidemia
CPT/HCPCS: 78452; 93017; 93018; 93306; A9502; J2785

== ENCOUNTER 2024-06-11 08:32 | Day surgery (SDC) | payer MEDICARE, SELFPAY ==
[2024-06-11] VITALS (13 sets, daily range): BP systolic 82–123; BP diastolic 53–75; PULSE 65–78; RESP 13–19; O2SAT 91–98; BMI 27.9
--- NOTE | 2024-06-11 07:04 | IR_ITS ---
APPROVED REPORT Patient Location: Outpatient PROCEDURES Left heart catheterization Left ventriculogram Selective coronary angiogram INDICATION Known coronary artery disease, Abnormal stress test, Worsening angina pectoris Informed consent was obtained prior to the procedure. COMPLICATIONS none Estimated Blood Loss: less than 10ml TECHNIQUE One percent lidocaine used to anesthetize the right anterior aspect of the wrist. The right radial artery was accessed via the Seldinger technique. A 6 Lithuanian sheath was placed in the right radial artery. 2.5 mg of Verapamil, 800 mcg of nitroglycerin, 1mg Lidocaine and 5000 U Heparin were given through the arterial sheath. The papa catheter and 6 Lithuanian JL 3.5 guide catheter were also used to perform left heart catheterization, left ventriculogram and selective coronary angiogram. At the end of the procedure the sheath was removed good hemostasis was achieved using Traclet band, patient was transferred to the postop holding area in stable condition. ANGIOGRAPHIC RESULTS The left main artery Normal The left anterior descending artery Has stents in the proximal to mid segment with 30 to 40% concentric in-stent restenosis in the proximal segment and distal portion of the mid stent. There is a first diagonal artery which is moderate in size and jailed within the stent and has an ostial 40% stenosis followed by a proximal to mid vessel 40% stenosis The circumflex artery Is large and codominant with a stent in the proximal segment which is widely patent free of in-stent restenosis with excellent proximal distal transitioning. A large first obtuse marginal artery has a mid vessel 30% eccentric stenosis The right coronary artery Is codominant and has a stent in the proximal to mid segment. The midportion of the stent has a concentric 50% in-stent restenotic lesion. There are additional 30% distal stenoses. The FAIR ventriculogram reveals Not performed The left ventricular end-diastolic pressure Not measured IMPRESSION Coronary disease as described above Moderate concentric in-stent restenosis within the mid codominant right coronary artery which is best managed medically PLAN 1. Continue medical management. It is unlikely any of the above lesions are producing patient's dyspnea 2. Maximize antianginal medications and aggressive risk factor modification Electronically signed by : Riki Stephens MD 06/11/2024 14:15:22
[2024-06-11 09:08] LABS: Basophils # 0.1 K/mm3 (0-0.2); Basophils % 1.1 % (0.1-2.0); Eosinophils # 0.2 K/mm3 (0.0-0.4); Eosinophils % 3.2 % (0.1-12.0); Hematocrit 36.4 % (42.0-52.0); Hemoglobin 12.5 g/dL (14.1-18.0); Lymphocytes # 0.9 K/mm3 (0.7-4.5); Lymphocytes % 19.1 % (10-50); Mean Corpuscular HGB Conc 34.3 g/dL (31.8-35.4); Mean Corpuscular Hemoglobin 30.9 pg (27.0-31.2); Mean Corpuscular Volume 89.9 fl (80-94); Mean Platelet Volume 9.5 fl (7.4-10.4); Monocytes # 0.9 K/mm3 (0.1-1.0); Monocytes % 18.2 % (1.7-9.3); Neutrophils # 2.7 K/mm3 (1.8-7.8); Platelet Count 213 K/mm3 (142-424); Red Blood Count 4.05 M/mm3 (4.60-6.20); Red Cell Distribution Width 13.8 % (11.5-17.5); White Blood Count 4.7 K/mm3 (4.8-10.8)
[2024-06-11 09:16] LABS: Anion Gap 11.2 mEq/L (5-15); Blood Urea Nitrogen 16 mg/dl (9-20); Calcium 9.5 mg/dl (8.4-10.2); Carbon Dioxide 23 mmol/L (22.0-30.0); Chloride 106 mmol/L (98-107); Creatinine Clearance Estimated 87 mL/min (50-200); Estimated Glomerular Filt Rate 112 ml/min (>60); GFR (African American) 135 ML/MIN (>60); Glucose 112 mg/dl (74-100); Potassium 4.2 mmoL/L (3.5-5.1); Sodium 136 mmol/L (136-145)
[2024-06-11] MEDS: LIDOCAINE 1% 10ML MDV 20 ML IJ (11:10)
[2024-06-11] MEDS: diphenhydrAMINE 50MG/ML VIAL 50 MG IV (11:10)
[2024-06-11] MEDS: VERAPAMIL 2.5MG/ML 2ML VIAL 2.5 MG IV (11:12)
[2024-06-11] MEDS: HEPARIN 1,000 UNITS/500ML NS (CATH LAB) 3000 UNIT IV (11:12)
[2024-06-11] MEDS: HEPARIN 1,000 UNITS/ML 10ML VIAL (CATH LAB) 10000 UNIT IV (11:13)
[2024-06-11] MEDS: NITROGLYCERIN 800MCG/8ML SYR (CATH LAB) 800 MCG IA (11:13)
[2024-06-11] MEDS: 0.9 % SODIUM CHLORIDE 500 ML 25 ML IV (11:13)
[2024-06-11] MEDS: FENTANYL 100MCG/2ML VIAL 50 MCG IV (12:00)
[2024-06-11] MEDS: MIDAZOLAM HCL 1MG/ML 5ML VIAL 1 MG IV (12:00)
[2024-06-11] MEDS: IOPAMIDOL-370 (76%);100ML BOTTLE 75 ML IV (14:29)
== END 2024-06-11 15:00 | disposition home or self-care (01) ==
PROVIDERS: PCP Family Medicine; Visit Provider Internal Medicine
PROC: (CPT 93458; principal; 2024-06-11 10:15)
DX: I25.118 Atherosclerotic heart disease of native coronary artery with other forms of angina pectoris (principal); I11.0 Hypertensive heart disease with heart failure; I50.21 Acute systolic (congestive) heart failure; R94.39 Abnormal result of other cardiovascular function study; F51.8 Other sleep disorders not due to a substance or known physiological condition; E78.5 Hyperlipidemia, unspecified; G47.33 Obstructive sleep apnea (adult) (pediatric); Z88.2 Allergy status to sulfonamides; Z88.5 Allergy status to narcotic agent; Z95.5 Presence of coronary angioplasty implant and graft; Z79.82 Long term (current) use of aspirin; Z79.899 Other long term (current) drug therapy; Z85.79 Personal history of other malignant neoplasms of lymphoid, hematopoietic and related tissues
CPT/HCPCS: 93458; 80048; 85025; 99152; C1725; C1769; J1200; J1644; J3010; Q9967

== ENCOUNTER 2024-11-06 09:31 | Outpatient (CLI) | payer MEDICARE, SELFPAY ==
--- OUTSIDE RECORDS SUMMARY | 2024-11-06 09:34 | XMS_ITS | Clinical Summary ---
Author Organization [facility] Address [address] [place] [address] Care Team Providers Care Iron Bender Name Role Phone Tyler Parra MD Primary Care Provider [phone] Allergies Active Allergy Reactions Criticality Noted Date Comments Codeine Rash Low 05/16/2022 Other reaction(s): Hives Dapagliflozin Anaphylaxis High 09/03/2024 Morphine Rash Low 05/16/2022 Other reaction(s): Hives Rituximab Shortness of breath High 07/27/2022 Serum Sickness Sulfa Drugs Hives High 06/27/2022 Sulfamethoxazole-Trimet hoprim Hives,Shortness of breath High 06/30/2022 Joint and muscle pain. Medications aspirin 81 MG EC tablet Take 1 tablet by mouth 1 (one) time each day. Active carvedilol (Coreg) 12.5 MG tablet 06/01/2024 Active coenzyme Q-10 100 MG capsule Take 1 capsule by mouth 1 (one) time each day. Active empagliflozin (Jardiance) 10 MG 06/05/2024 Active ezetimibe (Zetia) 10 MG tablet Take 1 tablet by mouth 1 (one) time each day. 06/29/2023 Active lisinopril 5 MG tablet Active rosuvastatin (Crestor) 40 MG tablet 08/07/2024 Active spironolactone (Aldactone) 25 MG tablet Take 1 tablet by mouth 1 time each day. 06/18/2024 Active triamcinolone (Kenalog) 0.025 % cream 08/13/2024 Active Encounters Date Type Department Care Team Description 09/03/2024 8:00 AM EDT Office Visit Medical Office Building [facility] [address], [address] [place] [address] Rodrick Booker MD Lumbar stenosis with neurogenic claudication (Primary Dx); Trochanteric bursitis, right hip; Trochanteric bursitis of left hip 09/03/2024 Travel 08/28/2024 Travel 08/13/2024 Telephone [facility] [address], [address] [place] [address] Ana Marina Ariana 08/06/2024 Telephone [facility] [address], [address] [place] [address] Michaelle Maradiaga MD [facility] - Patient Message from Last 3 Months Social History Tobacco Use Types Packs/Day Years Used Date Smoking Tobacco: Former Cigarettes 1 25 0 03/20/1979 - 03/20/2004 Passive Smoke Exposure: Past Smokeless Tobacco: Never Tobacco Cessation:Counseling Given: Not Answered Alcohol Use Standard Drinks/Week Comments Not Currently 1 (1 standard drink = 0.6 oz pur e alcohol) PHQ-2 Answer Date Recorded Patient Health Questionnaire-2 Score 0 06/27/2024 Sex and Gender Information Value Date Recorded Sex Assigned at Not on file Legal Sex Male 7:03 PM EDT Gender Identity Not on file Sexual Orientation Not on file Last Filed Vital Signs Vital Sign Reading Time Taken Comments Blood Pressure 102/69 09/03/2024 7:50 AM EDT Pulse 82 09/03/2024 7:50 AM EDT Temperature - - Respiratory Rate 18 09/03/2024 7:50 AM EDT Oxygen Saturation 95% 09/03/2024 7:50 AM EDT Inhaled Oxygen Concentration - - Weight 88 kg (194 lb 0.1 oz) 09/03/2024 7:50 AM EDT Height 177.8 cm (5' 10 ) 09/03/2024 7:50 AM EDT Body Mass Index 27.84 09/03/2024 7:50 AM EDT Plan of Treatment Health Maintenance Due Date Last Done Comments [facility]-Hepatitis C Screening 1955 [facility]-Medicare Annual Wellness (AWV) 1955 [facility]-/Child/Adol SDOH Screenings 1955 [facility]- SDOH Screenings 1972 [facility]-Adult SDOH Screenings 1972 [facility]-DTaP,Tdap,and Td Vaccine s (1 - Tdap) 1973 CT Colonography 07/11/1999 Colonoscopy 07/11/1999 FIT-DNA 07/11/1999 FIT 07/11/1999 FOBT 07/11/1999 Sigmoidoscopy 07/11/1999 [facility]-Colorectal Cancer Screening 07/11/1999 [facility]-Pneumococcal Vaccine: 50 + Years (1 of 1 - PCV) 2004 [facility]-Zoster Vaccines (1 of 2) 2004 [facility]-Abdominal Aortic Aneurys m (AAA) Screening 07/11/2019 [id number] Vaccine (3 - season) 2023 02/05/2021, 05/27/2020 [facility]-Influenza Vaccine (#1) 2024 [facility]-Depression Screening 06/27/2025 06/27/2024 [facility]-RSV Vaccine: 60+ Years o r (1 - 1-dose 75+ series) 2029 [facility]-Obesity Intervention Completed 025, 06/27/2024, 06/13/2024 HPV Vaccines Aged Out No longer eligi ble based on patient's age to complete this topic [facility]-HIB Vaccines Aged Out No longer e ligible based on patient's age to complete this topic [facility]-Hepatitis A Vaccines Aged Out No longer eligible based on patient's age to complete this topic [facility]-IPV Vaccines Aged Out No longer e ligible based on patient's age to complete this topic [facility]-Rotavirus Vaccines Aged Out No lo nger eligible based on patient's age to complete this topic Insurance [employer] MEDICARE Care Teams Iron Bender Relationship Specialty Start Date End Date Tyler Parra MD [address] [place] [address] [address] [place] [address] PCP - General 07/31/20
--- OUTSIDE RECORDS SUMMARY | 2024-11-06 09:34 | XMS_ITS | Clinical Summary ---
Author Organization [facility] Address [address] [place] [address] Care Team Providers Care Turkey Cleaner Name Role Phone Tyler Parra MD Primary Care Provider [phone] Medications Sod Picosulfate-Mag Ox-Cit Acd 10-3.5-12 MG-GM -GM/160ML solutionIndicat ions:Screening for colon cancer Take 160 mL by mouth Take As Directed for 2 doses. 320 mL 03/31/2021 Active Social History Tobacco Use Types Packs/Day Years Used Date Smoking Tobacco: Never Assessed Abuse Screen Answer Date Recorded Unsafe at Home or Work/School Not on file Feels Threatened by Someone? Not on file 11/2022 Does Anyone Keep You from Co ntacting Others or Doint Things Outside the Home? Not on file 12/26/2022 Physical Sign of Abuse Present Not on file 1 Housing Stability Answer Date Recorded Current Living Arrangements Not on file 11/2022 Potentially Unsafe Housing Conditions Not on jayson e 12/26/2022 Family and Community Support Answer Bakari e Recorded Help with Day-to-Day Activities Not on file 12/26/2022 Lonely or Isolated Not on file 12/26/2022 Employment Answer Date Recorded Do you want help finding or keeping work or a justin b? Not on file 12/26/2022 Disabilities Answer Date Recorded Concentrating, Remembering, or Making Decisions Difficulty Not on file 12/26/2022 Doing Errands Independently Difficulty Not on fi le 12/26/2022 Education Answer Date Recorded Help with school or training? Not on file Preferred Language Not on file 12/26/2022 Sex and Gender Information Value Date Recorded Sex Assigned at Not on file Legal Sex Male 11:11 AM EDT Gender Identity Not on file Sexual Orientation Not on file Plan of Treatment Health Maintenance Due Date Last Done Comments TDAP/TD VACCINES (1 - Tdap) 1973 COLOGUARD 07/11/1999 COLON CANCER SCREENING 5 YEAR SIGMOIDOSCOPY 07/11/1999 COLONOSCOPY 07/11/1999 COLORECTAL CANCER SCREENING 07/11/1999 CT COLONOGRAPHY 07/11/1999 FECAL OCCULT BLOOD TEST 07/11/1999 FIT Testing (1 year) 07/11/1999 Pneumococcal Vaccine 50+ (1 of 1 - PCV) 2004 ZOSTER VACCINE (1 of 2) 2004 AAA SCREEN ONCE 07/11/2019 ANNUAL WELLNESS VISIT 03/08/2021 HEPATITIS C SCREENING 03/08/2021 COVID-19 Vaccine ( - 2023- season) 2023 INFLUENZA VACCINE 12/18/2024 Insurance [facility] Care Teams Turkey Cleaner Relationship Specialty Start Date End Date Tyler Parra MD [address] [place], [place] [id number] PCP - General Family Medicine 04/14/21
--- OUTSIDE RECORDS SUMMARY | 2024-11-06 09:34 | XMS_ITS | Encounter Summary ---
Author Organization Healthcare Address [address] [place] [address] Care Team Providers Care Porcelain Enamel Laborer Name Role Phone Tyler Parra MD Primary Care Provider Encounter Details Date Type Department Care Team (Late st Contact Info) Description 11/24/2023 Orders Only External Location [address] [place] [address] Tana Perez, SPOUT LINER HELPER [address] [place] [address] Social History Tobacco Use Types Packs/Day Years Used Date Smoking Tobacco: Never Assessed Sex and Gender Information Value Date Recorded Sex Assigned at Not on file Legal Sex Male 7:03 PM EDT Gender Identity Not on file Sexual Orientation Not on file documented as of this encounter Plan of Treatment Not on file documented as of this encounter Procedures Procedure Name Priority Date/Time Associated Diagnosis Comments MR OUTSIDE IMAGES 11/24/2023 8:29 AM EDT documented in this encounter Results * MR transfer of outside films (11/24/2023 8:29 AM EDT) Anatomical Region Laterality Modality Magnetic Resonan ce 11/24/2023 8:29 AM EDT Tana Perez APRN IMG MRI PROCEDURES Final Result documented in this encounter Visit Diagnoses Not on filedocumented in this encounter Care Teams Porcelain Enamel Laborer Relationship Specialty Start Date End Date Tyler Parra MD [address] [place] [address] [address] [place] [id number] PCP - General 07/31/20 documented as of this encounter
--- OUTSIDE RECORDS SUMMARY | 2024-11-06 09:34 | XMS_ITS | Encounter Summary ---
Author Organization Healthcare Address [address] [place] [address] Care Team Providers Care Mechanical Engineering Technician Name Role Phone Tyler Parra MD Primary Care Provider [phone] Encounter Details Date Type Department Care Team (Late st Contact Info) Description 11/24/2023 Orders Only External Location [address] [place] [address] Tana Perez, SAFETY ADVISOR [address] [place] [id number] Social History Tobacco Use Types Packs/Day Years [...] on filedocumented in this encounter Care Teams Mechanical Engineering Technician Relationship Specialty Start Date End Date Tyler Parra MD [address] [place] [address] [address] [place] [id number] PCP - General 07/31/20 documented as of this encounter
[2024-11-06 10:07] LABS: Hematocrit 35.1 % (42.0-52.0); Hemoglobin 12.0 g/dL (14.1-18.0); Immature Granulocytes % 0.2 %; Mean Corpuscular HGB Conc 34.2 g/dL (31.8-35.4); Mean Corpuscular Hemoglobin 31.7 pg (27.0-31.2); Mean Corpuscular Volume 92.6 fl (80-94); Nucleated Red Blood Cells % 0 %; Platelet Count 224 K/mm3 (142-424); Red Blood Count 3.79 M/mm3 (4.60-6.20); Red Cell Distribution Width-SD 45.6 fL; White Blood Count 5.4 K/mm3 (4.8-10.8)
[2024-11-06 10:34] LABS: Albumin Level 4.5 g/dl (3.5-5.0); Chloride 106 mmol/L (98-107); Potassium 4.5 mmoL/L (3.5-5.1); Sodium 138 mmol/L (136-145)
[2024-11-06 10:36] LABS: Bilirubin,Unconjugated 0.8 mg/dL (0.0-1.1); Blood Urea Nitrogen 12 mg/dl (9-20); Creatinine,Serum 0.60 mg/dl (0.66-1.25); Estimated Glomerular Filt Rate 133 ml/min (>60); GFR (African American) 161 ML/MIN (>60)
[2024-11-06 10:37] LABS: Alanine Aminotransferase 48 U/L (12-78); Alkaline Phosphatase 68 U/L (38-126); Anion Gap 14.5 mEq/L (5-15); Aspartate Amino Transferase 46 U/L (17-59); Bilirubin,Direct 0.2 mg/dl (0.0-0.4); Bilirubin,Indirect 0.7 mg/dL (0.0-0.9); Bilirubin,Total 0.9 mg/dl (0.2-1.3); Calcium 9.5 mg/dl (8.4-10.2); Carbon Dioxide 22 mmol/L (22.0-30.0); Cholesterol 89 mg/dl (140-200); Glucose 118 mg/dl (74-100); HDL Cholesterol 36 mg/dl (40-60); Magnesium 2.0 mg/dl (1.6-2.3); Total Protein,Serum 6.4 g/dl (6.3-8.2); Triglycerides 146 mg/dl (30-150)
[2024-11-06 10:57] LABS: Free T4 (Free Thyroxine) 0.92 ng/dl (0.78-2.19)
[2024-11-06 11:07] LABS: Thyroid Stimulating Hormone 0.53 uIU/mL (0.465-4.68)
== END 2024-11-06 23:59 | disposition home or self-care (01) ==
LOC: LAB 09:32
PROVIDERS: PCP Family Medicine; Visit Provider Physician Assistant
DX: I25.10 Atherosclerotic heart disease of native coronary artery without angina pectoris (principal); I42.9 Cardiomyopathy, unspecified; E78.5 Hyperlipidemia, unspecified
CPT/HCPCS: 36415; 80048; 80061; 80076; 83735; 84439; 84443; 85025

== ENCOUNTER 2025-01-01 10:38 | Outpatient (CLI) | payer MEDICARE, SELFPAY ==
--- OUTSIDE RECORDS SUMMARY | 2025-01-01 10:44 | XMS_ITS | Clinical Summary ---
Author Organization [facility] Address [address] [place] [address] Care Team Providers Care Swinging Cut Off Saw Operator Name Role Phone Tyler Parra MD Primary Care Provider [phone] Medications Sod Picosulfate-Mag Ox-Cit Acd 10-3.5-12 MG-GM [...] WELLNESS VISIT 03/08/2021 HEPATITIS C SCREENING 03/08/2021 INFLUENZA VACCINE 10/18/2024 COVID-19 Vaccine ( - 2023- season) 2024 [facility] Care Teams Swinging Cut Off Saw Operator Relationship Specialty Start Date End Date Tyler Parra MD [address] [place], [place] [id number] PCP - General Family Medicine 04/14/21
--- OUTSIDE RECORDS SUMMARY | 2025-01-01 10:44 | XMS_ITS | Encounter Summary ---
Author Organization Healthcare Address [address] [place] [address] Care Team Providers Care Financial Health Counselor Name Role Phone Tyler Parra MD Primary Care Provider [phone] Encounter Details Date Type Department Care Team (Late st Contact Info) Description 11/24/2023 Orders Only External Location [address] [place] [address] Tana Perez, ERECTOR OPERATOR [address] [place] [address] Social History Tobacco Use Types Packs/Day Years [...] on filedocumented in this encounter Care Teams Financial Health Counselor Relationship Specialty Start Date End Date Tyler Parra MD [address] [place] [address] [address] [place] [address] PCP - General 07/31/20 documented as of this encounter
--- OUTSIDE RECORDS SUMMARY | 2025-01-01 10:44 | XMS_ITS | Encounter Summary ---
Author Organization Healthcare Address [address] [place] [address] Care Team Providers Care Project Program Manager Name Role Phone Tyler Parra MD Primary Care Provider Encounter Details Date Type Department Care Team (Late st Contact Info) Description 11/24/2023 Orders Only External Location [address] [place] [address] Tana Perez, HIGH PRESSURE FIRER [address] [place] [id number] Social History Tobacco Use Types Packs/Day Years [...] on filedocumented in this encounter Care Teams Project Program Manager Relationship Specialty Start Date End Date Tyler Parra MD [address] [place] [address] [address] [place] [phone] PCP - General 07/31/20 documented as of this encounter
--- OUTSIDE RECORDS SUMMARY | 2025-01-01 10:44 | XMS_ITS | Clinical Summary ---
Author Organization [facility] Address [address] [place] [address] Care Team Providers Care Ibm Mainframe Developer Name Role Phone Tyler Parra MD Primary Care Provider [phone] Allergies Active Allergy Reactions Criticality Noted Date [...] triamcinolone (Kenalog) 0.025 % cream 08/13/2024 Active Social History Tobacco Use Types Packs/Day [...] Last Done Comments [facility]-Hepatitis C Screening 1954 [facility]-Medicare Annual Wellness (AWV) 1954 [facility]-/Child/Adol SDOH Screenings [...] [facility]-Abdominal Aortic Aneurys m (AAA) Screening 07/11/2019 [id number] Vaccine (3 - 2025-26 season) 2024 02/05/2021, 05/27/2020 [facility]-Influenza Vaccine (#1) 2024 [facility]-Depression Screening 06/27/2025 06/27/2024 [facility]-RSV Vaccine: 60+ Years o r (1 - 1-dose 75+ series) 2029 [facility]-Obesity Intervention Completed , 06/27/2024, 06/13/2024 HPV Vaccines Aged Out No [...] patient's age to complete this topic Insurance [facility] MEDICARE Care Teams Ibm Mainframe Developer Relationship Specialty Start Date End Date Tyler Parra MD [address] [place] [address] [address] [place] Alc[place] [id number] PCP - General 07/31/20
[2025-01-01 11:39] LABS: Alanine Aminotransferase 48 U/L (12-78); Albumin Level 4.3 g/dl (3.5-5.0); Aspartate Amino Transferase 43 U/L (17-59); Bilirubin,Unconjugated 1.0 mg/dL (0.0-1.1); Cholesterol 85 mg/dl (140-200); HDL Cholesterol 34 mg/dl (40-60); Total Protein,Serum 6.2 g/dl (6.3-8.2); Triglycerides 125 mg/dl (30-150)
[2025-01-01 11:50] LABS: Hemoglobin A1C 6.3 % (4.0-6.0)
[2025-01-01 12:54] LABS: Alkaline Phosphatase 80 U/L (38-126); Bilirubin,Direct 0.4 mg/dl (0.0-0.4); Bilirubin,Indirect 0.9 mg/dL (0.0-0.9); Bilirubin,Total 1.3 mg/dl (0.2-1.3)
[2025-01-01 13:25] LABS: Hematocrit 35.9 % (42.0-52.0); Hemoglobin 12.3 g/dL (14.1-18.0); Immature Granulocytes % 0.2 %; Mean Corpuscular HGB Conc 34.3 g/dL (31.8-35.4); Mean Corpuscular Hemoglobin 31.8 pg (27.0-31.2); Mean Corpuscular Volume 92.8 fl (80-94); Nucleated Red Blood Cells % 0 %; Platelet Count 223 K/mm3 (142-424); Red Blood Count 3.87 M/mm3 (4.60-6.20); Red Cell Distribution Width-SD 43.9 fL; White Blood Count 5.6 K/mm3 (4.8-10.8)
== END 2025-01-01 23:59 | disposition home or self-care (01) ==
PROVIDERS: PCP Family Medicine; Visit Provider Physician Assistant
DX: I11.0 Hypertensive heart disease with heart failure (principal); I50.20 Unspecified systolic (congestive) heart failure; I25.10 Atherosclerotic heart disease of native coronary artery without angina pectoris; G47.33 Obstructive sleep apnea (adult) (pediatric); I35.1 Nonrheumatic aortic (valve) insufficiency; E78.5 Hyperlipidemia, unspecified; I42.9 Cardiomyopathy, unspecified
CPT/HCPCS: 36415; 80061; 80076; 83036; 85025

== ENCOUNTER 2025-01-09 01:57 | Emergency (ER) | payer MEDICARE, SELFPAY ==
[2025-01-09] VITALS (15 sets, daily range): BP systolic 94–129; BP diastolic 57–80; PULSE 60–81; RESP 11–21; TEMP 36.6–36.7; O2SAT 92–98; BMI 28.3
--- NOTE | 2025-01-09 01:56 | ECG_ITS ---
APPROVED REPORT Exam: Resting ECG HR:81 bpm ECG Measurements Heart Rate 81 AXES HI 186 P 32 QRSd 103 QRS -32 QT 396 T 29 QTc 433 Conclusion SINUS RHYTHM POSSIBLE ANTERIOR MYOCARDIAL INFARCTION , OF INDETERMINATE AGE [30 ms Q WAVE IN V3/V4, OR R < 0.2 mV IN V4] INFERIOR MYOCARDIAL INFARCTION , PROBABLY OLD [40+ ms Q WAVE AND/OR ST/T ABNORMALITY IN II/aVF] ABNORMAL ECG UNCONFIRMED REPORT Electronically signed by : ZOYA RIDDLE, 01/09/2025 06:42:28
--- NOTE | 2025-01-09 02:03 | XR_ITS ---
PROCEDURE INFORMATION: Exam: XR Chest Exam date and time: 01/09/2025 2:13 AM Age: 69 years old Clinical indication: Pain; Chest pressure; Additional info: Cp TECHNIQUE: Imaging protocol: Radiologic exam of the chest. Views: 1 view. COMPARISON: CR XR CHEST PORTABLE 02/13/2023 1:10 AM FINDINGS: Lungs: Low lung volumes. Small calcified granuloma at the right lung base. Peripheral linear scar right midlung zone. No consolidation. Pleural spaces: Unremarkable. No pleural effusion. No pneumothorax. Heart/Mediastinum: Unremarkable. No cardiomegaly. Vasculature: Unremarkable. Bones/joints: Unremarkable. IMPRESSION: No acute findings.
--- NOTE | 2025-01-09 02:04 | HMH.EDGENADL ---
Discharge Plan Disposition Patient Disposition: Home, Self-Care Prescriptions Prescriptions: No Action aspirin [Adult Low Dose Aspirin] 81 mg tablet,delayed release (DR/EC) 81 mg PO DAILY Qty: 30 2RF rosuvastatin [Crestor] 40 mg tablet 40 mg PO DAILY Qty: 30 2RF lisinopril 5 mg tablet 5 mg PO DAILY Qty: 30 11RF spironolactone 25 mg tablet See Rx Instructions .ROUTE .COMPLEX Qty: 90 3RF Dose Instruction: TAKE 1 TABLET BY MOUTH ONCE DAILY Rx Instructions: TAKE 1 TABLET BY MOUTH ONCE DAILY carvedilol 12.5 mg tablet See Rx Instructions .ROUTE .COMPLEX Qty: 180 3RF Dose Instruction: TAKE 1 TABLET BY MOUTH TWICE DAILY WITH FOOD Rx Instructions: TAKE 1 TABLET BY MOUTH TWICE DAILY WITH FOOD ezetimibe 10 mg tablet 10 mg PO DAILY Patient Comments: TAKE 1 TABLET BY MOUTH ONCE DAILY Referrals Follow up/Referrals: Provider,Referral, MD [Primary Care Provider, Medical] - See instructions Activity Restrictions/Add. Instructions Additional Instructions/Restrictions: Please follow-up with your primary care provider. Please return to the emergency department if you develop any new or worsening symptoms or become concerned for your health. Clinical Impressions Clinical Impression: Chest pain Print Language Print Language: Bahamian Discharge ED Provider: Robin Lewis Adult HPI General Chief complaint: Chest Pain Stated complaint: Chest Pain Time Seen by Provider: 01/09/25 02:00 History of Present Illness HPI narrative: 69-year-old male with history of, artery disease, apnea, hypertension presents for chest pain. He reports chest pain woke him from sleep about 20 minutes prior to arrival. Reports it was central in nature. Denies significant shortness of breath. Denies any fever or recent illness. Reports some nausea but no vomiting. Related Data Home Medications ?Medication ?Instructions ?Recorded ?Confirmed ezetimibe 10 mg tablet 10 mg PO DAILY 03/18/24 11/06/24 Previous Rx's ?Medication ?Instructions ?Recorded aspirin 81 mg tablet,delayed 81 mg PO DAILY #30 tabs 05/09/24 release (Adult Low Dose Aspirin) rosuvastatin 40 mg tablet (Crestor) 40 mg PO DAILY #30 tabs 05/09/24 lisinopril 5 mg tablet 5 mg PO DAILY #30 tabs 08/27/24 spironolactone 25 mg tablet See Rx Instructions .Route 09/16/24 .COMPLEX #90 tabs carvedilol 12.5 mg tablet See Rx Instructions .Route 12/01/24 .COMPLEX #180 tabs Allergies Allergy/AdvReac Type Severity Reaction Status Date / Time Sulfa (Sulfonamide Allergy Hives Verified 11/06/24 08:58 Antibiotics) codeine AdvReac Hives Verified 11/06/24 08:58 morphine AdvReac Hives Verified 11/06/24 08:58 PFSH PFS Disclaimer: The information contained in this section may have been updated after the patient was seen, as this information can be updated by other users. Medical History (Updated 01/09/25 @ 02:52 by Robin Lewis MD) Sweating profusely LUIS ANTONIO (obstructive sleep apnea) Diastolic dysfunction Aortic insufficiency Cardiomyopathy HLD (hyperlipidemia) HHD (hypertensive heart disease) CAD (coronary artery disease) Atypical angina HFrEF (heart failure with reduced ejection fraction) Stage 1 low grade lymphoma Sciatica Daytime somnolence Snoring Surgical History History of cardiac cath Social History Smoking Status: Never smoker second hand exposure: No alcohol intake: never substance use type: denies use current occupational status: retired Travel in the last 8 weeks?: None household members: spouse housing: house current occupational exposures/hazards: No caffeine: Yes Other Medical History Have you received the Flu Vaccine for this season: Yes Have you received the Pneumonia Vaccine: Yes ROS Obtained: Yes All systems reviewed & no additional complaints except as documented Physical Exam General General appearance: alert and in no apparent distress Head Head exam: atraumatic and normocephalic Eye Eye exam: Present normal appearance, PERRL and EOMI ENT ENT exam: Present normal oropharynx and normal external ear exam Neck Neck exam: Present normal inspection and full ROM Chest Chest inspection: Present normal inspection and symmetric chest wall rise; Absent tenderness Respiratory Respiratory exam: Present normal lung sounds bilaterally; Absent respiratory distress Cardiovascular Cardiovascular exam: Present regular rate and normal rhythm Abdominal Exam Abdominal exam: Present soft; Absent distention, tenderness or guarding Extremities Exam Extremities exam: Present normal inspection; Absent edema or joint swelling Back Exam Back exam: Present normal inspection; Absent tenderness Neurological Exam Neurological exam: Present alert and oriented X3; Absent motor sensory deficit Psychiatric Psychiatric exam: Present normal affect and normal mood Skin Skin exam: Present warm, dry and normal color Lymphatic Lymphatic Findings: no adenopathy Medical Decision Making Medical Records Medical records reviewed: Yes I reviewed the patient's medical records. Screening: Per USPSTF and CDC recommendations, given the prevalence of disease in our region, it is our hospital?s policy to screen for HIV and viral Hepatitis for all patients aged 18 and over and those with ongoing risk factors. Erlin Inquiry Pt receiving controlled substance: No Erlin was queried for this patient: No Vital Signs: 01/09/25 01:59 01/09/25 02:06 01/09/25 02:22 Temperature 97.9 F Temperature Source Oral Pulse Rate 81 73 Pulse Rate [Left Radial] 81 Respiratory Rate 21 11 L Blood Pressure Blood Pressure [Right Arm] 129/80 Blood Pressure Mean Blood Pressure Mean [Right Arm] 96 Blood Pressure Source [Right Arm] Automatic Cuff Blood Pressure Position [Right Arm] Sitting 02 Sat by Pulse Oximetry 96 98 Oxygen Delivery Method Room Air 01/09/25 02:22 01/09/25 02:30 01/09/25 02:30 Temperature Temperature Source Pulse Rate 72 Pulse Rate [Left Radial] Respiratory Rate 20 Blood Pressure 97/69 L 113/67 Blood Pressure [Right Arm] Blood Pressure Mean 75 80 Blood Pressure Mean [Right Arm] Blood Pressure Source [Right Arm] Blood Pressure Position [Right Arm] 02 Sat by Pulse Oximetry 97 Oxygen Delivery Method 01/09/25 02:45 01/09/25 03:00 01/09/25 03:00 Temperature Temperature Source Pulse Rate 71 70 Pulse Rate [Left Radial] Respiratory Rate 17 18 Blood Pressure 102/62 L Blood Pressure [Right Arm] Blood Pressure Mean 81 Blood Pressure Mean [Right Arm] Blood Pressure Source [Right Arm] Blood Pressure Position [Right Arm] 02 Sat by Pulse Oximetry 96 95 Oxygen Delivery Method 01/09/25 03:15 01/09/25 03:30 01/09/25 03:30 Temperature Temperature Source Pulse Rate 70 66 Pulse Rate [Left Radial] Respiratory Rate 17 19 Blood Pressure 101/57 L Blood Pressure [Right Arm] Blood Pressure Mean 71 Blood Pressure Mean [Right Arm] Blood Pressure Source [Right Arm] Blood Pressure Position [Right Arm] 02 Sat by Pulse Oximetry 94 L 95 Oxygen Delivery Method 01/09/25 03:45 01/09/25 04:00 01/09/25 04:00 Temperature Temperature Source Pulse Rate 71 60 Pulse Rate [Left Radial] Respiratory Rate 16 15 Blood Pressure 100/62 L Blood Pressure [Right Arm] Blood Pressure Mean 69 Blood Pressure Mean [Right Arm] Blood Pressure Source [Right Arm] Blood Pressure Position [Right Arm] 02 Sat by Pulse Oximetry 92 L 94 L Oxygen Delivery Method 01/09/25 04:15 01/09/25 04:30 01/09/25 04:30 Temperature Temperature Source Pulse Rate 71 71 Pulse Rate [Left Radial] Respiratory Rate 17 17 Blood Pressure 100/57 L Blood Pressure [Right Arm] Blood Pressure Mean 67 Blood Pressure Mean [Right Arm] Blood Pressure Source [Right Arm] Blood Pressure Position [Right Arm] 02 Sat by Pulse Oximetry 96 95 Oxygen Delivery Method 01/09/25 04:45 01/09/25 05:00 01/09/25 05:00 Temperature Temperature Source Pulse Rate 74 65 Pulse Rate [Left Radial] Respiratory Rate 14 14 Blood Pressure 94/60 L Blood Pressure [Right Arm] Blood Pressure Mean 72 Blood Pressure Mean [Right Arm] Blood Pressure Source [Right Arm] Blood Pressure Position [Right Arm] 02 Sat by Pulse Oximetry 96 95 Oxygen Delivery Method 01/09/25 05:11 Temperature 98.1 F Temperature Source Pulse Rate 66 Pulse Rate [Left Radial] Respiratory Rate 20 Blood Pressure 100/57 L Blood Pressure [Right Arm] Blood Pressure Mean Blood Pressure Mean [Right Arm] Blood Pressure Source [Right Arm] Blood Pressure Position [Right Arm] 02 Sat by Pulse Oximetry Oxygen Delivery Method Room Air Lab Data Lab results reviewed: Yes I reviewed the patient's lab results. Lab Results 01/09/25 02:00: WBC 6.2, RBC 4.01 L, Hgb 12.7 L, Hct 37.6 L, MCV 93.8, MCH 31.7 H, MCHC 33.8, RDW 12.9, Plt Count 233, MPV 9.4, Neut % (Auto) 53.6, Lymph % (Auto) 22.4, [place] % (Auto) 19.1 H, Eos % (Auto) 3.7, Baso % (Auto) 1.0, Neut # (Auto) 3.4, Lymph # (Auto) 1.4, [place] # (Auto) 1.2 H, Eos # (Auto) 0.2, Baso # (Auto) 0.1, D-Dimer 0.59 H, Sodium 138, Potassium 4.0, Chloride 103, Carbon Dioxide 24, Anion Gap 15.0, BUN 21 H, Creatinine 0.80, Estimated Creat Clear 87, Estimated GFR 96, Est GFR ( Amer) 116, Glucose 123 H, Calcium 9.1, Total Bilirubin 1.0, AST 39, ALT 39, Alkaline Phosphatase 102, Troponin I < 0.01, Total Protein 6.7, Albumin 4.4, Globulin 2.3, Albumin/Globulin Ratio 1.9 H, HCV Ab MAURIZIO w/Rflx PCR Qn Negative, HIV Ag/Ab Combo Qual Negative 01/09/25 04:32: Troponin I < 0.01 01/09/25 02:00 01/09/25 02:00 Orders (Tests/Meds): ED MEDICATIONS Discontinued Medications Generic Name Dose Route Start Last Admin Trade Name Freq PRN Reason Stop Dose Admin Acetaminophen 1,000 mg 01/09/25 02:02 01/09/25 02:13 Acetaminophen 500mg Tab PO 01/09/25 02:03 1,000 mg ONCE ONE Administration Aspirin 324 mg 01/09/25 02:02 01/09/25 02:13 Aspirin 81mg Chewable Tablet PO 01/09/25 02:03 324 mg ONCE ONE Administration Belladonna Alkaloids 60 ml 01/09/25 02:02 01/09/25 02:15 Belladonna Alkaloids 60 Ml Ml PO 01/09/25 02:03 60 ml ONCE ONE Administration Ondansetron HCl 4 mg 01/09/25 02:02 01/09/25 02:13 Ondansetron 4mg/2ml Vial IV 01/09/25 02:03 4 mg ONCE ONE Administration ORDERS Category Date Time Status CXR --portable [XR chest portable] Stat Exams 01/09/25 02:03 Completed CBC w/Auto Diff [Complete Blood Count Auto Diff] Stat Lab 01/09/25 02:00 Completed CMP [Comprehensive Metabolic Panel] Stat Lab 01/09/25 02:00 Completed D-Dimer Stat Lab 01/09/25 02:00 Completed HIV Combo Stat Lab 01/09/25 02:00 Completed Hepatitis C Ab Qual. W/ RFX Stat Lab 01/09/25 02:00 Completed Troponin I Q3H Lab 01/09/25 02:00 Completed Troponin I Q3H Lab 01/09/25 04:32 Completed ECG Data Tracing #1: I reviewed this ECG and interpreted as documented below: Sinus rhythm, ventricular rate of 81, no significant ST or T wave changes, no evidence of arrhythmia ECG initial impression date: 01/09/25 ECG initial impression time: 01:56 HEART Score History (anamnesis): Moderately suspicious ECG: Normal Age: >65 years Risk factors: Atherosclerosis history Troponin: </= normal limit HEART Score: 5 Medical Decision Narrative: 69-year-old male with history of coronary artery disease, hypertension, heart failure presents for chest pain that awoke him from sleep about 20 minutes prior to arrival.. History was obtained via interactive discussion with patient. On arrival, patient is [afebrile, hemodynamically stable, satting appropriately, alert, oriented x4, GCS 15], moving all extremities spontaneously. Full physical exam performed and significant for no significant physical exam abnormalities Differential includes but is not limited to ACS, PE, angina, musculoskeletal pain, pleurisy, esophageal spasm/GERD. Patient was given Tylenol, aspirin, Zofran, GI cocktail for symptomatic management and correction of underlying abnormalities. Workup initiated including CBC CMP troponin D-dimer chest x-ray EKG. On re-evaluation, patient reports symptomatic resolution. No longer having any chest pain or pressure Laboratory workup independently interpreted by me and significant for negative initial troponin, negative D-dimer by years criteria, no significant electrolyte derangement, no significant leukocytosis.. Imaging independently interpreted by me and significant for lungs bilaterally without focal opacity. See radiology read for full review of final results. Patient was placed in ED observation status for cardiac monitoring and serial troponins. On reassessment, after 2 hours of observation, patient remains stable and asymptomatic. Repeat troponin returns undetectably low. Given this, patient seemed appropriate for discharge with outpatient management. Interactive discussion was had with patient regarding his presentation and workup. Discharged in stable condition. Procedures Risk/Benefits of Procedure(s) Were Explained: Yes Critical Care Critical Care Time Critical Care Time: No
[2025-01-09 02:07] LABS: Hematocrit 37.6 % (42.0-52.0); Hemoglobin 12.7 g/dL (14.1-18.0); Immature Granulocytes % 0.2 %; Mean Corpuscular HGB Conc 33.8 g/dL (31.8-35.4); Mean Corpuscular Hemoglobin 31.7 pg (27.0-31.2); Mean Corpuscular Volume 93.8 fl (80-94); Nucleated Red Blood Cells % 0 %; Platelet Count 233 K/mm3 (142-424); Red Blood Count 4.01 M/mm3 (4.60-6.20); Red Cell Distribution Width-SD 44.2 fL; White Blood Count 6.2 K/mm3 (4.8-10.8)
--- OUTSIDE RECORDS SUMMARY | 2025-01-09 02:08 | XMS_ITS | Encounter Summary ---
Author Organization Healthcare Address [address] [place] [address] Care Team Providers Care Circulation Supervisor Name Role Phone Tyler Parra MD Primary Care Provider [phone] Encounter Details Date Type Department Care Team (Late st Contact Info) Description 11/24/2023 Orders Only External Location [address] [place] [address] Tana Perez, TELECOM MANAGER [address] [place] [id number] Social History Tobacco Use Types Packs/Day Years [...] on filedocumented in this encounter Care Teams Circulation Supervisor Relationship Specialty Start Date End Date Tyler Parra MD [address] [place] [address] #1 #1 KAYA Alcantar [phone] PCP - General 07/31/20 documented as of this encounter
--- OUTSIDE RECORDS SUMMARY | 2025-01-09 02:08 | XMS_ITS | Clinical Summary ---
Author Organization [facility] Address [address] [place] [address] Care Team Providers Care Executive Administrative Assistant Name Role Phone Tyler Parra MD Primary Care Provider [phone] Allergies Active Allergy Reactions Criticality Noted Date [...] UKY-Abdominal Aortic Aneurys m (AAA) Screening 07/11/2019 [id number] Vaccine (3 - 2025-26 season) 2024 02/05/2021, [...] patient's age to complete this topic Insurance [facility] MEDICARE Care Teams Executive Administrative Assistant Relationship Specialty Start Date End Date Tyler Parra MD [address] [place] [address] #1 #1 KAYA Alcantar [phone] PCP - General 07/31/20
--- OUTSIDE RECORDS SUMMARY | 2025-01-09 02:08 | XMS_ITS | Clinical Summary ---
[facility] Organization [facility] Address [address] [place] [address] Care Team Providers Care Deputy Director Of Public Works Name Role Phone Tyler Parra MD Primary Care Provider [phone] Medications Sod Picosulfate-Mag Ox-Cit Acd 10-3.5-12 MG-GM [...] 2) 2004 AAA SCREEN ONCE 07/11/2019 ANNUAL PHYSICAL 03/08/2021 HEPATITIS C SCREENING 03/08/2021 INFLUENZA VACCINE 10/18/2024 COVID-19 Vaccine ( - 2023- season) 2024 [facility] Care Teams Deputy Director Of Public Works Relationship Specialty Start Date End Date Tyler Parra MD [address] [place], [place] [phone] PCP - General Family Medicine 04/14/21
--- OUTSIDE RECORDS SUMMARY | 2025-01-09 02:08 | XMS_ITS | Encounter Summary ---
Author Organization Healthcare Address [address] [place] [address] Care Team Providers Care Engineer Systems Name Role Phone Tyler Parra MD Primary Care Provider [phone] Encounter Details Date Type Department Care Team (Late st Contact Info) Description 11/24/2023 Orders Only External Location [address] [place] [address] Tana Perez, HOME HEALTH CNA [address] [place] [id number] Social History Tobacco Use Types Packs/Day Years [...] on filedocumented in this encounter Care Teams Engineer Systems Relationship Specialty Start Date End Date Tyler Parra MD [address] [place] [address] #1 #1 KAYA Alcantar [id number] PCP - General 07/31/20 documented as of this encounter
[2025-01-09] MEDS: ASPIRIN 81MG CHEWABLE TABLET 324 MG PO (02:13)
[2025-01-09] MEDS: ONDANSETRON 4MG/2ML VIAL 4 MG IV (02:13)
[2025-01-09] MEDS: ACETAMINOPHEN 500MG TAB 1000 MG PO (02:13)
[2025-01-09] MEDS: BELLADONNA ALKALOIDS 60 ML ML PO (02:15)
[2025-01-09 02:28] LABS: Alanine Aminotransferase 39 U/L (12-78); Albumin Level 4.4 g/dl (3.5-5.0); Albumin/Globulin Ratio 1.9 (1.1-1.8); Alkaline Phosphatase 102 U/L (38-126); Anion Gap 15.0 mEq/L (5-15); Aspartate Amino Transferase 39 U/L (17-59); Bilirubin,Total 1.0 mg/dl (0.2-1.3); Blood Urea Nitrogen 21 mg/dl (9-20); Calcium 9.1 mg/dl (8.4-10.2); Carbon Dioxide 24 mmol/L (22.0-30.0); Chloride 103 mmol/L (98-107); Creatinine Clearance Estimated 87 mL/min (50-200); Creatinine,Serum 0.80 mg/dl (0.66-1.25); Estimated Glomerular Filt Rate 96 ml/min (>60); GFR (African American) 116 ML/MIN (>60); Globulin 2.3 g/dL (1.3-3.2); Glucose 123 mg/dl (74-100); Potassium 4.0 mmoL/L (3.5-5.1); Sodium 138 mmol/L (136-145); Total Protein,Serum 6.7 g/dl (6.3-8.2)
[2025-01-09 02:32] LABS: D-Dimer 0.59 ug/mL (0.0-0.5)
[2025-01-09 02:41] LABS: Troponin I < 0.01 ng/ml (0.00-0.034)
[2025-01-09 05:00] LABS: Troponin I < 0.01 ng/ml (0.00-0.034)
[2025-01-09 05:13] LABS: Hepatitis C Ab Qual. W/ RFX NEGATIVE (Negative)
== END 2025-01-09 05:19 | disposition home or self-care (01) ==
PROVIDERS: Emergency Provider Emergency Medicine
DX: R07.9 Chest pain, unspecified (principal); R11.0 Nausea; I11.0 Hypertensive heart disease with heart failure; I50.9 Heart failure, unspecified; I25.118 Atherosclerotic heart disease of native coronary artery with other forms of angina pectoris
CPT/HCPCS: 71045; 80053; 84484; 85025; 85378; 86803; 87389; 93005; 99285; J2405